=== PATIENT | female | born 1950 | race Caucasian/White ===

== ENCOUNTER 2018-03-11 01:44 | Emergency (ER) | payer MEDICARE, MEDICAID ==
[2018-03-11 07:52] LABS: CHLORIDE,CL 102 mmol/L (98-107); SODIUM,NA 141 mmol/L (136-145)
--- NOTE | 2018-03-12 10:17 | EDM.PDOC ---
ED HPI GENERAL MEDICAL PROBLEM - General Chief Complaint: Neuro Symptoms/Deficits Stated Complaint: fall, pupils less reactive Time Seen by Provider: 03/11/18 01:46 Source of Information: Reports: Patient - History of Present Illness INITIAL COMMENTS - FREE TEXT/NARRATIVE: Patient is a 67-year-old seen in the ER secondary to request of the [facility] nurses patient apparently fell at the [facility] nurses stated that she fell off the wheelchair hitting her head she was doing okay she had multiple neuro exams on her last neuro exam they reported that the pupils were nonreactive O patient was sent to the ER for evaluation patient was alert and oriented 3 state that she fell off the wheelchair hitting her head denied any other symptoms physical exam reveal normocephalic atraumatic no signs of trauma seen eyes were PERRLA pupils were 2 mm and reactive throat was clear neck was supple lungs clear to auscultation no rales rhonchi or wheezing heart was regular rate and rhythm abdomen was soft nontender no masses organomegaly good bowel sounds extremities reveal full range of motion at this time a CT of the head was obtained there was no intracranial bleed or abnormalities at this time patient will be sent home to her [facility] follow-up with primary as needed Onset: Today - Related Data Allergies Allergy/AdvReac Type Severity Reaction Status Date / Time Penicillins Allergy Cannot Verified 01/10/16 16:17 Remember Home Meds: Home Meds ARIPiprazole [Abilify] 30 mg PO DAILY 07/13/15 [History] Acetaminophen [Acetaminophen ER] 650 mg PO BID 07/13/15 [History] Albuterol Sulfate [Proventil Hfa] 2 inh IH BID 07/13/15 [History] Albuterol/Ipratropium [DuoNeb 3.0-0.5 MG/3 ML] 3 ml NEB DAILY@199907/13/15 [ History] Alendronate [Fosamax] 70 mg PO Q7D@0600 07/13/15 [History] Aspirin [Halfprin] 81 mg PO DAILY 07/13/15 [History] Cholecalciferol (Vitamin D3) [Vitamin D3] 2,000 unit PO DAILY 07/13/15 [History] Donepezil HCl [Aricept] 10 mg PO BID 07/13/15 [History] Furosemide [Lasix] 40 mg PO DAILY 07/13/15 [History] Gabapentin [Neurontin] 100 mg PO BID 07/13/15 [History] Insulin Aspart [Novolog] 10 unit SQ TID 07/13/15 [History] L.acidoph,Paracasei, B.lactis [Probiotic] 1 each PO DAILY 07/13/15 [History] Levothyroxine Sodium [Synthroid] 175 mcg PO DAILY 07/13/15 [History] Lisinopril 10 mg PO DAILY 07/13/15 [History] Memantine HCl [Namenda XR] 14 mg PO DAILY 07/13/15 [History] Metoprolol Succinate [Toprol XL] 25 mg PO DAILY 07/13/15 [History] Omeprazole [Prilosec] 20 mg PO DAILY 07/13/15 [History] Sertraline HCl [Zoloft] 1.5 tab PO DAILY 07/13/15 [History] atorvaSTATin [Lipitor] 40 mg PO DAILY 07/13/15 [History] traMADol HCl [Ultram] 50 mg PO TID 07/13/15 [History] Calcitriol 0.5 mcg PO DAILY 01/10/16 [History] Insulin Glarg,Human.Rec.Analog [LantUS Solostar] 20 units SUBCUT DAILY 01/10/16 [History] metOLazone [Metolazone] 2.5 mg PO DAILY 01/10/16 [History] Past Medical History Cardiovascular History: Reports: High Cholesterol, Hypertension, Other (See Below) Other Cardiovascular History: Edema Respiratory History: Reports: COPD Genitourinary History: Reports: Chronic Renal Insuffiency, Renal Disease Psychiatric History: Reports: Schizophrenia Endocrine/Metabolic History: Reports: Diabetes, Type II - Infectious Disease History Infectious Disease History: Reports: Chicken Pox ED ROS GENERAL - Review of Systems Review Of Systems: ROS reveals no pertinent complaints other than HPI. ED EXAM, GENERAL - Physical Exam Exam: See Below Free Text/Narrative:: physical exam reveal normocephalic atraumatic no signs of trauma seen eyes were PERRLA pupils were 2 mm and reactive throat was clear neck was supple lungs clear to auscultation no rales rhonchi or wheezing heart was regular rate and rhythm abdomen was soft nontender no masses organomegaly good bowel sounds extremities reveal full range of motion at this time Course - Orders/Labs/Meds Labs: Laboratory Tests 03/11/18 03/11/18 Range/Units 02:20 02:20 WBC 4.8 (4.0-10.2) K/uL RBC 3.39 L (3.77-5.09) M/uL Hgb 10.3 L (11.7-15.5) g/dL Hct 33.4 L (34.0-46.0) % MCV 98.5 H D (84.0-98.0) fL MCH 30.4 (28.2-33.3) pg MCHC 30.8 L (31.7-36.0) g/dL RDW 15.3 H (11.2-14.1) % Plt Count 190 (150-350) K/uL Neut % (Auto) 51.4 (45.0-80.0) % Lymph % (Auto) 31.3 (10.0-50.0) % [place] % (Auto) 9.9 (2.0-14.0) % Eos % (Auto) 7.0 H (0.0-5.0) % Baso % (Auto) 0.4 (0.0-2.0) % Neut # (Auto) 2.48 (1.40-7.00) K/uL Lymph # (Auto) 1.51 (0.50-3.50) K/uL [place] # (Auto) 0.48 (0.00-1.00) K/uL Eos # (Auto) 0.34 (0.00-0.50) K/uL Baso # (Auto) 0.02 (0.00-0.20) K/uL Sodium 141 (136-145) mmol/L Potassium 3.0 L (3.5-5.1) mmol/L Chloride 102 (98-107) mmol/L Carbon Dioxide 33.0 H D (21.0-32.0) mmol/L BUN 37 H (7-18) mg/dL Creatinine 2.87 H (0.51-1.17) mg/dL Est Cr Clr Drug Dosing TNP Estimated GFR (MDRD) 16 mL/min Glucose 140 H (74-106) mg/dL Calcium 9.5 (8.5-10.1) mg/dL Departure - Departure Time of Disposition: 05:09 Disposition: DC/Tfer to SNF 03 Clinical Impression: Fall Qualifiers: Encounter type: initial encounter Qualified Code(s): W19.XXXA - Unspecified fall, initial encounter - Discharge Information Forms: ED Department Discharge Care Plan Goals: DC back to [facility] ; follow up as needed
== END 2018-03-11 05:09 ==
LOC: LL.ED 01:44
DX: Z04.3 Encounter for examination and observation following other accident (principal); I12.9 Hypertensive chronic kidney disease with stage 1 through stage 4 chronic kidney disease, or unspecified chronic kidney disease; N18.9 Chronic kidney disease, unspecified; J44.9 Chronic obstructive pulmonary disease, unspecified; E11.9 Type 2 diabetes mellitus without complications; W18.30XA Fall on same level, unspecified, initial encounter; Y92.129 Unspecified place in nursing home as the place of occurrence of the external cause; Z88.0 Allergy status to penicillin; Z79.899 Other long term (current) drug therapy; Z79.4 Long term (current) use of insulin
CPT/HCPCS: 36415; 70450; 80048; 85025; 99283; 99285

== ENCOUNTER 2018-04-17 18:14 | Emergency (ER) | payer MEDICARE, MEDICAID ==
[2018-04-17 18:39] VITALS: BP 134/50
--- NOTE | 2018-04-17 20:14 | EDM.PDOC ---
ED HPI GENERAL MEDICAL PROBLEM - General Chief Complaint: General Stated Complaint: congestion Time Seen by Provider: 04/17/18 18:33 Source of Information: Reports: Other (Patient sent from [facility] by ambulance with complaint of congestion with room air sats of 88% written on paperwork. No additional information given. No phone call made to our facility prior to transfer. Confirmed with Alireza that no communication was attempted with her (shelter monitor for shelter issues) prior to facility sending patient to ER. Patient herself says that she feels fine and as without acute complaints when she arrived. She does have some degree of memory impairment which limited ROS. ) - History of Present Illness INITIAL COMMENTS - FREE TEXT/NARRATIVE: See above. No other concerns per paperwork sent with shelter resident. Upon arrival patient was resting comfortably. Did ask to use the bathroom. Denied acute pain/cough/SOB/GI/HEENT/chest complaints. - Related Data Allergies Allergy/AdvReac Type Severity Reaction Status Date / Time Penicillins Allergy Cannot Verified 01/10/16 16:17 Remember Home Meds: Home Meds ARIPiprazole [Abilify] 30 mg PO DAILY 07/13/15 [History] Acetaminophen [Acetaminophen ER] 650 mg PO Q4HR PRN 07/13/15 [History] Albuterol Sulfate [Proventil Hfa] 2 inh IH BID 07/13/15 [History] Aspirin [Halfprin] 81 mg PO DAILY 07/13/15 [History] Cholecalciferol (Vitamin D3) [Vitamin D3] 2,000 unit PO DAILY 07/13/15 [History] Donepezil HCl [Aricept] 10 mg PO 07/13/15 [History] Furosemide [Lasix] 40 mg PO DAILY 07/13/15 [History] L.acidoph,Paracasei, B.lactis [Probiotic] 1 each PO DAILY 07/13/15 [History] Levothyroxine Sodium [Synthroid] 175 mcg PO DAILY@0500 07/13/15 [History] Metoprolol Succinate [Toprol XL] 0.5 tab PO DAILY 07/13/15 [History] atorvaSTATin [Lipitor] 40 mg PO DAILY 07/13/15 [History] traMADol HCl [Ultram] 50 mg PO BEDTIME 07/13/15 [History] Calcitriol 0.5 tab PO DAILY 01/10/16 [History] Allopurinol [Zyloprim] 300 mg PO DAILY 04/17/18 [History] Bisacodyl [Dulcolax] 10 mg RC DAILY PRN 04/17/18 [History] Bumetanide [Bumex] 1 mg PO DAILY 04/17/18 [History] Divalproex Sodium [Depakote Sprinkle] 125 mg PO BIDMEALS 04/17/18 [History] Ferrous Fumarate/Vitamin C [Vitron-C] 2 tab PO DAILY@1000 04/17/18 [History] Gabapentin [Neurontin] 400 mg PO DAILY 04/17/18 [History] Insulin Degludec [Tresiba Flextouch U-200] 4 units SQ BEDTIME 04/17/18 [History] Magnesium Hydroxide [Milk of Magnesia] 30 ml PO DAILY PRN 04/17/18 [History] Nystatin 1 each PO BID PRN 04/17/18 [History] Potassium Chloride [Klor-Con 10] 2 tab PO BID 04/17/18 [History] Trolamine Salicylate/Aloe Vera [Aspercreme 10% Cream] 1 applic TP ASDIRECTED PRN 04/17/18 [History] oxyCODONE HCl/Acetaminophen [Oxycodone-Acetaminophen 5-325] 1 tab PO ASDIRECTED PRN 04/17/18 [History] Past Medical History Cardiovascular History: Reports: Heart Failure, High Cholesterol, Hypertension, Other (See Below) Other Cardiovascular History: Edema Respiratory History: Reports: COPD Genitourinary History: Reports: Chronic Renal Insuffiency, Renal Disease Psychiatric History: Reports: Bipolar (Schizoaffective disorder), Dementia Endocrine/Metabolic History: Reports: Diabetes, Type II, Hypothyroidism, Obesity /BMI 30+ Hematologic History: Reports: Anemia, Other (See Below) (hypocalcemia, hyperuricemia, hypokalemia) - Infectious Disease History Infectious Disease History: Reports: Chicken Pox Social & Family History - Tobacco Use Smoking Status *Q: Former Smoker Used Tobacco, but Quit: Yes Month/Year Tobacco Last Used: 4 years - Recreational Drug Use Recreational Drug Use: No ED ROS GENERAL - Review of Systems Review Of Systems: Unable To Obtain ED EXAM, GENERAL - Physical Exam Exam: See Below Exam Limited By: No Limitations General Appearance: Alert, No Apparent Distress, Obese Eye Exam: Bilateral Eye: EOMI, PERRL Ears: Normal External Exam Nose: No: Nasal Deformity, Nasal Swelling, Nasal Drainage Throat/Mouth: Normal Voice, No Airway Compromise Head: Atraumatic, Normocephalic Neck: Normal Inspection, Supple, Non-Tender, Full Range of Motion Respiratory/Chest: No Respiratory Distress, No Accessory Muscle Use, Chest Non- Tender, Decreased Breath Sounds (Poor inspiratory effort/morbidly obese), Rhonchi (several scattered rhonchi note right lung. Cleared when patient coughed. ). No: Crackles, Rales, Wheezing, Stridor Cardiovascular: Regular Rate, Rhythm, Other (AV fistula noted left arm) Peripheral Pulses: 2+: Radial (L), Radial (R) GI/Abdominal: Normal Bowel Sounds, Soft, Non-Tender, Other (obese) (Female) Exam: Normal External Exam Rectal (Female) Exam: Deferred Back Exam: No: Muscle Spasm Extremities: Normal Capillary Refill, Pedal Edema. No: Leg Pain, Increased Warmth, Mottled, Pallor, Redness Neurological: Alert, Other (awake, follows commands, appears to have equal tone/ strength bilaterally. Very deconditioned. ) Psychiatric: Normal Affect, Normal Mood Skin Exam: Warm, Dry, Normal Color Course - Vital Signs Last Recorded V/S: Last Vital Signs Temp 36.7 C 04/17/18 18:31 Pulse 63 04/17/18 18:31 Resp 20 04/17/18 18:31 BP 134/50 L 04/17/18 18:31 Pulse Ox 96 04/17/18 18:31 - Orders/Labs/Meds Orders: Active Orders 24 hr Category Date Time Status Chest 1V Frontal [CR] Stat Exams 04/17/18 18:28 Ordered Labs: Laboratory Tests 04/17/18 04/17/18 04/17/18 Range/Units 19:00 19:00 19:00 WBC 7.7 (4.0-10.2) K/uL RBC 3.55 L (3.77-5.09) M/uL Hgb 10.9 L (11.7-15.5) g/dL Hct 35.8 (34.0-46.0) % MCV 100.8 H (84.0-98.0) fL MCH 30.7 (28.2-33.3) pg MCHC 30.4 L (31.7-36.0) g/dL RDW 17.0 H (11.2-14.1) % Plt Count 142 L (150-350) K/uL Neut % (Auto) 66.9 (45.0-80.0) % Lymph % (Auto) 22.3 (10.0-50.0) % [place] % (Auto) 7.1 (2.0-14.0) % Eos % (Auto) 3.4 (0.0-5.0) % Baso % (Auto) 0.3 (0.0-2.0) % Neut # (Auto) 5.17 (1.40-7.00) K/uL Lymph # (Auto) 1.72 (0.50-3.50) K/uL [place] # (Auto) 0.55 (0.00-1.00) K/uL Eos # (Auto) 0.26 (0.00-0.50) K/uL Baso # (Auto) 0.02 (0.00-0.20) K/uL Sodium 148 H (136-145) mmol/L Potassium 5.1 D (3.5-5.1) mmol/L Chloride 108 H (98-107) mmol/L Carbon Dioxide 29.6 (21.0-32.0) mmol/L BUN 33 H (7-18) mg/dL Creatinine 2.72 H (0.51-1.17) mg/dL Est Cr Clr Drug Dosing 16.60 mL/min Estimated GFR (MDRD) 17 mL/min Glucose 140 H (74-106) mg/dL Lactic Acid 2.2 H (0.4-2.0) mmol/L Calcium 10.7 H (8.5-10.1) mg/dL Total Bilirubin 0.3 (0.2-1.0) mg/dL AST 13 L (15-37) U/L ALT 10 L (12-78) U/L Alkaline Phosphatase 71 (46-116) IU/L Total Protein 7.8 (6.4-8.2) g/dL Albumin 3.0 L (3.4-5.0) g/dL - Radiology Interpretation Free Text/Narrative:: Chest xray did not appear to show acute changes suggestive of pneumonia/ pneumthorax/effusions. - Re-Assessments/Exams Free Text/Narrative Re-Assessment/Exam: 04/17/18 20:30 Unremarkable exam. O2 sats on room air 95-96% while patient sleeping. Sparse rhonchi noted on chest exam which improved with cough. Appeared to be more consistent with transmitted upper airway sounds. No nasal congestion noted. WBC within normal limits. Afbrile. Xray did not show infiltrate. Lactic acid mildly elevated but suspect that is reflective of patient's chronic kidney disease. Na and Cl noted to be slightly elevated, again likely related to chronic kidney disease. Call placed to Alireza, shelter monitor [facility] Acute medication changes and antibiotics not indicated at this time. Patient's presentation, exam, and lab work discussed. Plan at this time is to have patient return to [place] and follow up at [facility] tomorrow or Saturday for recheck. She will be placed on low sodium diet and be encouraged to drink more water. Staff is to continue to observe for changes. Departure - Departure Time of Disposition: 20:36 Disposition: DC/Tfer to SNF 03 Condition: Good Clinical Impression: Hypernatremia Chronic kidney disease Qualifiers: Chronic kidney disease stage: unspecified stage Qualified Code(s): N18.9 - Chronic kidney disease, unspecified - Discharge Information *PRESCRIPTION DRUG MONITORING PROGRAM REVIEWED*: Not Applicable *COPY OF PRESCRIPTION DRUG MONITORING REPORT IN PATIENT DEISI: Not Applicable Referrals: Pauline Upton MD [Primary Care Provider] - Forms: ED Department Discharge Additional Instructions: Follow up with Alireza at [facility] either tomorrow or Saturday at clinic for re- examination. Encourage PO water. Place on low salt diet. Continue to observe for changes. - My Orders Last 24 Hours: My Active Orders 04/17/18 18:28 Chest 1V Frontal [CR] Stat - Assessment/Plan Last 24 Hours: My Active Orders 04/17/18 18:28 Chest 1V Frontal [CR] Stat
== END 2018-04-17 21:30 ==
LOC: LL.ED 18:14
DX: E87.0 Hyperosmolality and hypernatremia (principal); I13.0 Hypertensive heart and chronic kidney disease with heart failure and stage 1 through stage 4 chronic kidney disease, or unspecified chronic kidney disease; E11.22 Type 2 diabetes mellitus with diabetic chronic kidney disease; I50.9 Heart failure, unspecified; N18.9 Chronic kidney disease, unspecified; E78.00 Pure hypercholesterolemia, unspecified; E03.9 Hypothyroidism, unspecified; E66.01 Morbid (severe) obesity due to excess calories; Z68.39 Body mass index [BMI] 39.0-39.9, adult; Z87.891 Personal history of nicotine dependence; Z79.82 Long term (current) use of aspirin; Z79.4 Long term (current) use of insulin; Z79.899 Other long term (current) drug therapy; Z88.0 Allergy status to penicillin
CPT/HCPCS: 36415; 71045; 80053; 83605; 85025; 99285

== ENCOUNTER 2018-11-21 05:55 | Emergency (ER) | payer MEDICARE, MEDICAID ==
[2018-11-21] MEDS ORDERED: Sodium Chloride 0.9% 10 ML Syringe FLUSH PRN (06:19)
[2018-11-21] MEDS ORDERED: Famotidine 20 MG/2 ML SDV IVPUSH ONE (06:19)
--- NOTE | 2018-11-21 06:19 | EDM.PDOC ---
ED HPI GENERAL MEDICAL PROBLEM - General Chief Complaint: General Stated Complaint: decreased alertness, fever Time Seen by Provider: 11/21/18 06:10 Source of Information: Reports: EMS, [facility] Records, Old Records ([facility] chart/EMR), Other ([facility] EMR). Denies: EMS Notes Reviewed (Not available at time of dictation) History Limitations: Reports: Altered Mental Status - History of Present Illness INITIAL COMMENTS - FREE TEXT/NARRATIVE: The patient was brought to the emergency room via ambulance with burring machine operator accompaniment secondary to hypoxia and increasing confusion/sedation with patient being an extremely poor historian secondary to her current sedation and previous mental status. No report was provided to us by the [facility] prior to transfer of this patient to this facility. At about 05:00 hours this morning the patient was noted to be more sedated by [facility]ci staff with hypoxia at that time. Stat Accu-Chek by the burring machine operator was normal at 150 mg percent. No known previous chest pain, anginal type symptoms, abdominal complaints, UTI symptoms, fever, cough, aspiration, seizures, fall, injury, etc., however history extremely limited as above. No apparent pain or discomfort. Onset: Unknown/Unsure Location: Reports: Other (No pain) Quality: Reports: Same as Previous Episode Severity: Severe Improves with: Reports: None Worsens with: Reports: None Context: Reports: Other (As above). Denies: Sick Contact, Trauma Associated Symptoms: Reports: Confusion, Malaise. Denies: Chest Pain, Cough, Diaphoresis, Fever/Chills, Headaches, Loss of Appetite, Nausea/Vomiting, Shortness of Breath, Syncope Treatments ASSISTANT PRESS OPERATOR OFFSET: Reports: Oxygen, See EMS Report - Related Data Allergies Allergy/AdvReac Type Severity Reaction Status Date / Time Penicillins Allergy Cannot Verified 07/31/18 14:24 Remember Home Meds: Home Meds ARIPiprazole [Abilify] 15 mg PO DAILY 07/13/15 [History] Acetaminophen [Acetaminophen ER] 650 mg PO Q4HR PRN 07/13/15 [History] Aspirin [Halfprin] 81 mg PO DAILY 07/13/15 [History] Donepezil HCl [Aricept] 10 mg PO 08,18 07/13/15 [History] Metoprolol Succinate [Toprol XL] 0.5 tab PO DAILY 07/13/15 [History] atorvaSTATin [Lipitor] 40 mg PO DAILY 07/13/15 [History] traMADol HCl [Ultram] 50 mg PO BEDTIME 07/13/15 [History] Allopurinol [Zyloprim] 300 mg PO DAILY 04/17/18 [History] Bumetanide [Bumex] 1 mg PO DAILY 04/17/18 [History] Divalproex Sodium [Depakote Sprinkle] 125 mg PO BIDMEALS 04/17/18 [History] Ferrous Fumarate/Vitamin C [Vitron-C] 2 tab PO DAILY@1000 04/17/18 [History] Gabapentin [Neurontin] 400 mg PO DAILY 04/17/18 [History] Magnesium Hydroxide [Milk of Magnesia] 30 ml PO DAILY PRN 04/17/18 [History] Nystatin 1 each TOP BID PRN 04/17/18 [History] Potassium Chloride [Klor-Con 10] 2 tab PO BID 04/17/18 [History] Levothyroxine 125 mcg PO ACBREAKFAST 11/21/18 [History] Past Medical History Cardiovascular History: Reports: CAD, Cardiomyopathy, Heart Failure, High Cholesterol, Hypertension, Other (See Below). Denies: Afib, Aneurysm, Arrhythmia, Blood Clots/VTE/DVT, ID, Syncope Other Cardiovascular History: Chronic dependent edema and recurrent CHF with moderate cardiomegaly, left atrial enlargement, left ventricular hypertrophy and grade 1 diastolic dysfunction by echocardiogram as below. D-dimer elevation chronic with negative workup. Respiratory History: Reports: Bronchitis, Recurrent, COPD, Intubation, Previous , Pneumonia, Recurrent, Pulmonary Fibrosis, Other (See Below). Denies: Intubation, Difficult, PE, Sleep Apnea Other Respiratory History: Bilateral pulmonary nodules by CT scans as below. Gastrointestinal History: Reports: Cholelithiasis, Diverticulosis, GERD, Other ( See Below) Other Gastrointestinal History: Gallbladder sludge Genitourinary History: Reports: Acute Renal Failure, Chronic Renal Insuffiency, Dialysis, Diabetic Nephropathy, Renal Disease, Urinary Incontinence, UTI, Recurrent, Other (See Below) Other Genitourinary History: Grade 4 renal insufficiency QUALITY TESTER History: Reports: LMP (Approximate): Menopausal Musculoskeletal History: Reports: Arthritis, Back Pain, Chronic, Gout, Neck Pain , Chronic, Osteoarthritis, Osteoporosis, Other (See Below) Other Musculoskeletal History: Hyperuricemia Neurological History: Reports: Alzheimers Disease, CVA, Neuropathy, Diabetic, Neuropathy, Peripheral, Other (See Below). Denies: TIA Other Neuro History: Cerebral atrophy and cerebovascular disease by CT scan. Chronic AMS. Suspected CVA with left-sided hemiparesis on 07/31/18 with negative workup as below. Psychiatric History: Reports: Alzheimers Disease, Anxiety, Bipolar ( Schizoaffective disorder), Dementia, Schizophrenia, Other (See Below) Other Psychiatric History: History of lithium toxicity. Endocrine/Metabolic History: Reports: Diabetes, Type II, Hyperparathyroidism, Hypothyroidism, IDDM, Multinodular Thyroid, Obesity/BMI 30+, Osteopenia, Osteoporosis, Other (See Below). Denies: Diabetes Mellitus, Type 3c Other Endocrine/Metabolic History: Large thyroid gland by ultrasound and CT scans with multiple nodules noted. Postoperative hypothyroidism. Secondary parathyroidism.. Hypercalcemia/hypocalcemia,hypokalemia, hypernatremia Hematologic History: Reports: Anemia, Iron Deficiency, Other (See Below). Denies: Blood Transfusion(s) Other Hematologic History: Additional chronic anemia secondary to renal disease. Dermatologic History: Reports: Venous Stasis Dermatitis, Other (See Below) Other Dermatologic History: Recurrent tinea - Infectious Disease History Infectious Disease History: Reports: Chicken Pox, MRSA - Past Surgical History Cardiovascular Surgical History: Reports: Vascular Surgery, Other (See Below) Other Cardiovascular Surgeries/Procedures: Left arm AV shunt fistula placement on 10/08/17 in 05/23/18. Female Surgical History: Reports: Hysterectomy, Tubal Ligation Endocrine Surgical History: Reports: Thyroidectomy, Other (See Below) Other Endocrine Surgeries/Procedures: Thyroidectomy secondary to goiter as above on 09/02/14. - Past Imaging History Past Imaging History: Reports: Cardiac Echo (Echocardiogram on 03/12/17 with ejection fraction of 70%. Previous evaluation on 01/03/16 with ejection fraction of 5055 percent with findings as above.), CAT Scan (CT of the head on 07/31/18 and 03/11/18. CT of the CT of the right tibial fibular area on 05/24/17. CT of the chest on 12/10/14 and 06/11/14. CT of the soft tissue of the neck on . CT of the abdomen and pelvis on 11/15/16.), DEXA Scan (04/11/15), Mammogram ( Last on 06/11/14), MRI ( MRI of the brain on 07/31/18.), Swallow Study (Negative on 08/01/18.), Ultrasound (Bilateral renal ultrasound on 11/14/16 and 07/15/15 Thyroid ultrasound on 06/02/14), Venous Doppler (Bilateral lower extremities on , 03/28/15, and 05/23/14. Left leg on 03/28/15. Right leg on 05/25/14) Social & Family History - Family History Family Medical History: Unobtainable - Tobacco Use Smoking Status *Q: Former Smoker Tobacco Use Within Last Twelve Months: No Packs/Tins Daily Comment: Stop smoking on . - Living Situation & Occupation Living situation: Reports: Extended Care Facility ([facility]) ED ROS GENERAL - Review of Systems Review Of Systems: Unable To Obtain ED EXAM, GENERAL - Physical Exam Exam: See Below Exam Limited By: Altered Mental Status General Appearance: No Apparent Distress, Lethargic Eye Exam: Bilateral Eye: EOMI (Unable to assess brief occasional right upper gaze), Normal Fundi, PERRL Ears: Normal External Exam, Normal Canal, Hearing Grossly Normal, Normal TMs Nose: Normal Inspection, Normal Mucosa, No Blood Throat/Mouth: Normal Lips, Normal Teeth, Normal Gums, Normal Oropharynx, Normal Voice, No Airway Compromise, Other (Protruding tongue with right deviation). No : Dysphagia, Perioral Cyanosis Head: Atraumatic, Normocephalic. No: Facial Swelling, Facial Tenderness, Sinus Tenderness Neck: Supple, Non-Tender, Carotid Bruit (Mild bilateral carotid bruits). No: Lymphadenopathy (L), Lymphadenopathy (R), Thyromegaly Respiratory/Chest: No Respiratory Distress, Chest Non-Tender, Rales (Moderate diffuse bilateral basilar rales). No: Pleural Rub, Retractions Cardiovascular: Normal Peripheral Pulses, No Gallop, No JVD, No Rub, Tachycardia , Systolic Murmur (Mild 1/6 CUONG of the aortic valve), Extra Beats (PVCs). No: Regular Rate, Rhythm, No Edema (Dependent edema as below), Gallop/S3, Gallop/S4 Peripheral Pulses: 2+: Radial (L), Radial (R), Dorsalis Pedis (L), Dorsalis Pedis (R) GI/Abdominal: Normal Bowel Sounds, Soft, Non-Tender, No Organomegaly, No Distention, No Abnormal Bruit, No Mass, Pelvis Stable, Other (Obese). No: Guarding (Female) Exam: Deferred Rectal (Female) Exam: Deferred Back Exam: Normal Inspection, Full Range of Motion. No: CVA Tenderness (L), CVA Tenderness (R), Muscle Spasm Extremities: Normal Range of Motion, Non-Tender, Normal Capillary Refill, Pedal Edema (Trace bilateral pedal/pretibial edema), Other (0.5 cm grade 12 ulcer over the tip of digit #1 of the left foot with no local signs of infection. Left forearm AV shunt with bruit noted). No: Deanne's Sign Neurological: Slow to Respond (Responded to painful stimuli only), Other ( Negative Babinski's with patient unable to perform neurological exam. Right- sided facial drooping with right-sided hemiparesis/leaning) Psychiatric: Other (Unable to assess) Skin Exam: Wound/Incision (As above), Other (Moderate bilateral venous stasis dermatitis of the lower extremities). No: Diaphoretic Lymphatic: No Adenopathy EKG INTERPRETATION EKG Date: 11/21/18 Time: 06:53 Rhythm: Other (Sinus tachycardia with occasional PVCs) Rate (Beats/Min): 104 [place]: Normal (Neutral axis) P-Wave: Present QRS: Normal (0.08 seconds.) ST-T: Other (Stable nonspecific ST changes in leads 2, 3, aVF and V4 through V6) AR/PQ Interval: 0.19 seconds. Poor R-wave progression in the anterior leads. Comparison: No Change (Since 07/31/18) EKG Interpretation Comments: 1. No acute ischemic changes 2. PVCs Course - Vital Signs Last Recorded V/S: Last Vital Signs Temp 37.7 C 11/21/18 05:55 Pulse 84 11/21/18 08:00 Resp 17 11/21/18 08:00 BP 139/75 11/21/18 08:00 Pulse Ox 95 11/21/18 08:00 Vital Signs - 24 hr 11/21/18 11/21/18 11/21/18 05:55 06:10 06:25 Temperature [ 37.7 C Temporal] Pulse, 101 H 99 102 H Peripheral [ Right Pulse Oximetry] Respiratory 17 17 16 Rate Blood Pressure 106/64 121/68 108/69 [Right Upper Arm] O2 Sat by Pulse 87 L 92 L 93 L Oximetry 11/21/18 11/21/18 11/21/18 07:00 07:15 07:30 Temperature [ Temporal] Pulse, 102 H 95 97 Peripheral [ Right Pulse Oximetry] Respiratory 19 17 18 Rate Blood Pressure 128/70 127/79 130/112 H [Right Upper Arm] O2 Sat by Pulse 91 L 95 94 L Oximetry 11/21/18 11/21/18 07:45 08:00 Temperature [ Temporal] Pulse, 86 84 Peripheral [ Right Pulse Oximetry] Respiratory 18 17 Rate Blood Pressure 135/83 139/75 [Right Upper Arm] O2 Sat by Pulse 94 L 95 Oximetry - Orders/Labs/Meds Orders: Active Orders 24 hr Category Date Time Status Cardiac Monitoring [RC] STAT Care 11/21/18 06:19 Active EKG Documentation Completion [RC] ASDIRECTED Care 11/21/18 06:19 Active NIH Stroke Scale [RC] ASDIRECTED Care 11/21/18 06:19 Active Oxygen Therapy, ED [RC] CONTINUOUS Care 11/21/18 06:19 Active Peripheral IV Care [RC] . DIRECTED Care 11/21/18 06:19 Active Pulse Oximetry [RC] CONTINUOUS Care 11/21/18 06:19 Active Up With Assistance [RC] ASDIRECTED Care 11/21/18 06:19 Active Vital Signs [RC] PFP Care 11/21/18 06:19 Active Nothing per Oral Now Diet [DIET] Diet 11/21/18 Breakfast Active Chest 1V Frontal [CR] Stat Exams 11/21/18 06:19 Taken Head wo Cont [CT] Stat Exams 11/21/18 06:19 Taken CULTURE BLOOD [BC] Stat Lab 11/21/18 06:30 Received CULTURE BLOOD [BC] Stat Lab 11/21/18 07:00 Received CULTURE URINE [RM] Routine Lab 11/21/18 06:21 Ordered PROLACTIN [REF] Stat Lab 11/21/18 07:00 Received URINALYSIS W/MICROSCOPIC [UA W/MICROSCOPIC] [URIN] Lab 11/21/18 06:21 Ordered Routine Sodium Chloride 0.9% [Saline Flush] Med 11/21/18 06:19 Active 10 ml FLUSH ASDIRECTED PRN Blood Culture x2 Reflex Set [OM.PC] Urgent Oth 11/21/18 06:21 Ordered Obtain Past Medical Record [OM.PC] Stat Oth 11/21/18 06:19 Active Peripheral IV Insertion Adult [OM.PC] Stat Oth 11/21/18 06:19 Ordered Resuscitation Status Stat Resus Stat 11/21/18 06:19 Ordered EKG 12 Lead [EK] Stat Ther 11/21/18 06:19 Ordered Medication Orders Sodium Chloride (Saline Flush) 10 ml FLUSH ASDIRECTED PRN PRN Reason: Keep Vein Open Last Admin: 11/21/18 07:30 Dose: 10 ml Labs: Laboratory Tests 11/21/18 11/21/18 11/21/18 Range/Units 06:30 06:30 06:30 WBC 5.9 (4.0-10.2) K/uL RBC 3.40 L (3.77-5.09) M/uL Hgb 11.2 L D (11.7-15.5) g/dL Hct 35.5 (34.0-46.0) % MCV 104.4 H (84.0-98.0) fL MCH 32.9 (28.2-33.3) pg MCHC 31.5 L (31.7-36.0) g/dL RDW 16.2 H (11.2-14.1) % Plt Count 124 L (150-350) K/uL Neut % (Auto) 69.4 (45.0-80.0) % Lymph % (Auto) 17.7 (10.0-50.0) % [place] % (Auto) 12.3 (2.0-14.0) % Eos % (Auto) 0.3 (0.0-5.0) % Baso % (Auto) 0.3 (0.0-2.0) % Neut # (Auto) 4.12 (1.40-7.00) K/uL Lymph # (Auto) 1.05 (0.50-3.50) K/uL [place] # (Auto) 0.73 (0.00-1.00) K/uL Eos # (Auto) 0.02 (0.00-0.50) K/uL Baso # (Auto) 0.02 (0.00-0.20) K/uL PT 10.1 (9.5-12.0) SEC INR 0.9 APTT 26.9 (21.0-31.3) SEC D-Dimer, Quantitative 1730 H (0-400) ng/mL Sodium (136-145) mmol/L Potassium (3.5-5.1) mmol/L Chloride (98-107) mmol/L Carbon Dioxide (21.0-32.0) mmol/L BUN (7-18) mg/dL Creatinine (0.51-1.17) mg/dL Est Cr Clr Drug Dosing Estimated GFR (MDRD) mL/min Glucose (74-106) mg/dL Lactic Acid (0.4-2.0) mmol/L Uric Acid (2.6-7.2) mg/dL Calcium (8.5-10.1) mg/dL Magnesium (1.8-2.4) mg/dL Total Bilirubin (0.2-1.0) mg/dL AST (15-37) U/L ALT (12-78) U/L Alkaline Phosphatase (46-116) IU/L Creatine Kinase (26-308) U/L Creatine Kinase Index (0.0-2.5) % CK-MB (CK-2) (0.00-3.60) ng/mL Troponin I (0.000-0.056) ng/mL NT-Pro-B Natriuret Pep (0-125) pg/mL Total Protein (6.4-8.2) g/dL Albumin (3.4-5.0) g/dL TSH, Ultra Sensitive (0.358-3.740) mIU/mL 11/21/18 11/21/18 Range/Units 06:30 06:30 WBC (4.0-10.2) K/uL RBC (3.77-5.09) M/uL Hgb (11.7-15.5) g/dL Hct (34.0-46.0) % MCV (84.0-98.0) fL MCH (28.2-33.3) pg MCHC (31.7-36.0) g/dL RDW (11.2-14.1) % Plt Count (150-350) K/uL Neut % (Auto) (45.0-80.0) % Lymph % (Auto) (10.0-50.0) % [place] % (Auto) (2.0-14.0) % Eos % (Auto) (0.0-5.0) % Baso % (Auto) (0.0-2.0) % Neut # (Auto) (1.40-7.00) K/uL Lymph # (Auto) (0.50-3.50) K/uL [place] # (Auto) (0.00-1.00) K/uL Eos # (Auto) (0.00-0.50) K/uL Baso # (Auto) (0.00-0.20) K/uL PT (9.5-12.0) SEC INR APTT (21.0-31.3) SEC D-Dimer, Quantitative (0-400) ng/mL Sodium 148 H (136-145) mmol/L Potassium 4.1 (3.5-5.1) mmol/L Chloride 111 H (98-107) mmol/L Carbon Dioxide 28.8 (21.0-32.0) mmol/L BUN 42 H (7-18) mg/dL Creatinine 2.52 H (0.51-1.17) mg/dL Est Cr Clr Drug Dosing TNP Estimated GFR (MDRD) 19 mL/min Glucose 132 H (74-106) mg/dL Lactic Acid 1.0 (0.4-2.0) mmol/L Uric Acid 5.2 (2.6-7.2) mg/dL Calcium 9.6 D (8.5-10.1) mg/dL Magnesium 2.3 (1.8-2.4) mg/dL Total Bilirubin 0.3 (0.2-1.0) mg/dL AST 19 (15-37) U/L ALT 17 (12-78) U/L Alkaline Phosphatase 56 (46-116) IU/L Creatine Kinase 207 (26-308) U/L Creatine Kinase Index 0.5 (0.0-2.5) % CK-MB (CK-2) 1.10 (0.00-3.60) ng/mL Troponin I 0.043 (0.000-0.056) ng/mL NT-Pro-B Natriuret Pep 861 H (0-125) pg/mL Total Protein 7.4 (6.4-8.2) g/dL Albumin 3.0 L (3.4-5.0) g/dL TSH, Ultra Sensitive 0.481 (0.358-3.740) mIU/mL Secondary to CVA and need for transfer catheter UA was not collected prior to patient leaving this facility Meds: Medications Generic Name Dose Route Start Last Admin Trade Name Freq PRN Reason Stop Dose Admin Sodium Chloride 10 ml 11/21/18 06:19 11/21/18 07:30 Saline Flush FLUSH 10 ml ASDIRECTED PRN Administration Keep Vein Open Discontinued Medications Generic Name Dose Route Start Last Admin Trade Name Freq PRN Reason Stop Dose Admin Aspirin 300 mg 11/21/18 08:12 11/21/18 08:15 Aspirin RECTAL 11/21/18 08:13 300 mg ONETIME ONE Administration Famotidine 40 mg 11/21/18 06:19 11/21/18 07:30 Pepcid IVPUSH 11/21/18 06:20 40 mg ONETIME ONE Administration - Radiology Interpretation Free Text/Narrative:: bacteriology technician shows mild sinus tachycardia with heart rate in the 110s with improvement to the 90s prior to transfer. Very occasional PVCs noted. Chest x-ray, portable, shows borderline cardiomegaly with mild mostly centralized CHF and additional mild COPD. No pulmonary infiltrates, pneumothorax , etc. Telephone consultation at 07:10 hours with the radiology department at [facility]. Preliminary verbal report of noncontrast CT scan of the head negative for acute CVA or hemorrhages with stable bilateral cerebral atrophy and cerebromicrovascular disease CT Results Date: 11/21/18 CT Results Time: 07:10 Departure - Departure Time of Disposition: 08:30 Disposition: DC/Tfer to Acute Hospital 02 Condition: Serious Clinical Impression: Hypothyroidism (acquired), Parkinsons disease, Organic brain syndrome, PVCs ( premature ventricular contractions), Schizophrenia, Hypoalbuminemia Chronic kidney disease Qualifiers: Chronic kidney disease stage: stage 5, not on chronic dialysis Qualified Code(s ): N18.5 - Chronic kidney disease, stage 5 CVA (cerebral vascular accident) Qualifiers: CVA mechanism: unspecified Qualified Code(s): I63.9 - Cerebral infarction, unspecified Anemia Qualifiers: Anemia type: unspecified type Qualified Code(s): D64.9 - Anemia, unspecified Diabetes mellitus Qualifiers: Diabetes mellitus type: type 2 Diabetes mellitus termination clerk insulin use: with termination clerk use Diabetes mellitus complication status: with kidney complications Diabetes mellitus complication detail: with chronic kidney disease Chronic kidney disease stage: stage 5, not on chronic dialysis Qualified Code(s): E11.22 - Type 2 diabetes mellitus with diabetic chronic kidney disease - Discharge Information *PRESCRIPTION DRUG MONITORING PROGRAM REVIEWED*: Not Applicable *COPY OF PRESCRIPTION DRUG MONITORING REPORT IN PATIENT DEISI: Not Applicable Referrals: Rachana Duong NP [Primary Care Provider] - Forms: ED Department Discharge, Interfacility Transfer EMTALA - Problem List & Annotations (1) CVA (cerebral vascular accident) SNOMED Code(s): 220483755 Code(s): I63.9 - CEREBRAL INFARCTION, UNSPECIFIED Status: Acute Priority : High Current Visit: Yes Onset Date: Unknown Annotation/Comment:: Modified Stroke code called by this physician upon patient's arrival to this facility secondary to patient's clinical findings and long duration of last known well time. Note negative CT scan of the head results as above. Telephone consultation with the patient's son, Christiano, at 07:15 a.m. confirming FULL CODE STATUS and wish to transfer of the patient to [place]. Subsequent telephone consultation with Dr. Mcmahon, neurologist at [facility] at 07:20 hours informing them of the stroke code. He was in agreement with treatment with rectal ASA and does accept the patient for further immediate MRI of the brain through their emergency room. He does agree to contact the emergency room physicians for me. Subsequent transfer with burring machine operator accompaniment with stable vital signs and patient condition prior to transfer. No intubation required with adequate oxygenation with nasal cannula and patient closely observed throughout emergency room care. Note previous similar type symptoms on 07/31/18, however left-sided hemiparesis at that time and negative subsequent workup as above. Qualifiers: CVA mechanism: unspecified Qualified Code(s): I63.9 - Cerebral infarction, unspecified (2) CHF (congestive heart failure) SNOMED Code(s): 94554091 Code(s): I50.9 - HEART FAILURE, UNSPECIFIED Status: Acute Priority: High Current Visit: Yes Onset Date: 07/31/18 Annotation/Comment:: Moderate BNP elevation with secondary mild change of troponin I, which is normal. EKG shows nonspecific ST changes with otherwise normal cardiac enzymes with no apparent recent anginal complaints. Chest pain protocol was not initiated in the emergency room. Known cardiac disease as above. Note d-dimer elevation as below. Mild CHF based on today's chest x-ray with some hypoxia requiring oxygen supplementation as above. Qualifiers: Heart failure type: combined systolic and diastolic Heart failure chronicity: acute on chronic Qualified Code(s): I50.43 - Acute on chronic combined systolic (congestive) and diastolic (congestive) heart failure (3) D-dimer, elevated SNOMED Code(s): 634243203 Code(s): R79.89 - OTHER SPECIFIED ABNORMAL FINDINGS OF BLOOD CHEMISTRY Status: Acute Priority: High Current Visit: Yes Onset Date: 07/31/18 Annotation/Comment:: Note history of previous chronic d-dimer elevation. Persistent D-dimer elevation possibly secondary to her acute CVA. Note renal insufficiency/failure. Further workup accepting providers depending on her clinical course. (4) PVCs (premature ventricular contractions) SNOMED Code(s): 50716396 Code(s): I49.3 - VENTRICULAR PREMATURE DEPOLARIZATION Status: Acute Priority: Medium Current Visit: Yes Onset Date: 11/21/18 Annotation/ Comment:: Nonsymptomatic. Newly diagnosed. Observe for now. (5) Chronic kidney disease SNOMED Code(s): 991030890 Code(s): N18.9 - CHRONIC KIDNEY DISEASE, UNSPECIFIED Status: Acute Priority: High Current Visit: Yes Annotation/Comment:: Stable renal insufficiency based on our records. Note history of dialysis. Qualifiers: Chronic kidney disease stage: stage 5, not on chronic dialysis Qualified Code(s): N18.5 - Chronic kidney disease, stage 5 (6) Anemia SNOMED Code(s): 515909661 Code(s): D64.9 - ANEMIA, UNSPECIFIED Status: Chronic Priority: Medium Current Visit: Yes Annotation/Comment:: Stable by history. Note iron deficiency and chronic renal disease. Macrocytosis today, however, with further workup by accepting providers depending on her clinical course. Qualifiers: Anemia type: unspecified type Qualified Code(s): D64.9 - Anemia, unspecified (7) Organic brain syndrome SNOMED Code(s): 863460146 Code(s): F09 - UNSP MENTAL DISORDER DUE TO KNOWN PHYSIOLOGICAL CONDITION Status: Chronic Priority: High Current Visit: Yes Annotation/Comment:: Increased lethargy secondary to CVA. (8) Diabetes mellitus SNOMED Code(s): 36850216 Code(s): E11.9 - TYPE 2 DIABETES MELLITUS WITHOUT COMPLICATIONS Status: Chronic Priority: Medium Current Visit: Yes Annotation/Comment:: Stable by history. Note diabetic nephropathy. Accu-Chek results as above by paramedics prior to arrival. Qualifiers: Diabetes mellitus type: type 2 Diabetes mellitus termination clerk insulin use: with termination clerk use Diabetes mellitus complication status: with kidney complications Diabetes mellitus complication detail: with chronic kidney disease Chronic kidney disease stage: stage 5, not on chronic dialysis Qualified Code(s): E11.22 - Type 2 diabetes mellitus with diabetic chronic kidney disease; N18.5 - Chronic kidney disease, stage 5; Z79.4 - assisted ( current) use of insulin (9) Hypothyroidism (acquired) SNOMED Code(s): 017025021 Code(s): E03.9 - HYPOTHYROIDISM, UNSPECIFIED Status: Chronic Priority: Medium Current Visit: Yes Annotation/Comment:: Under therapy with normal TSH today. (10) Schizophrenia SNOMED Code(s): 45145427 Code(s): F20.9 - SCHIZOPHRENIA, UNSPECIFIED Status: Chronic Priority: Medium Current Visit: Yes Annotation/Comment:: Stable by history? Qualifiers: Schizophrenia type: unspecified Qualified Code(s): F20.9 - Schizophrenia, unspecified (11) Hypoalbuminemia SNOMED Code(s): 717766722 Code(s): E88.09 - OTH DISORDERS OF PLASMA-PROTEIN METABOLISM, NEC Status: Acute Priority: Medium Current Visit: Yes Onset Date: 11/21/18 Annotation/Comment:: Observe for now. - Problem List Review Problem List Initiated/Reviewed/Updated: Yes - My Orders Last 24 Hours: My Active Orders 11/21/18 06:19 Cardiac Monitoring [RC] STAT EKG Documentation Completion [RC] ASDIRECTED NIH Stroke Scale [RC] ASDIRECTED Oxygen Therapy, ED [RC] CONTINUOUS Peripheral IV Care [RC] . DIRECTED Pulse Oximetry [RC] CONTINUOUS Up With Assistance [RC] ASDIRECTED Vital Signs [RC] PFP Chest 1V Frontal [CR] Stat Head wo Cont [CT] Stat Sodium Chloride 0.9% [Saline Flush] 10 ml FLUSH ASDIRECTED PRN Obtain Past Medical Record [OM.PC] Stat Peripheral IV Insertion Adult [OM.PC] Stat Resuscitation Status Stat EKG 12 Lead [EK] Stat 11/21/18 06:21 CULTURE URINE [RM] Routine URINALYSIS W/MICROSCOPIC [UA W/MICROSCOPIC] [URIN] Routine Blood Culture x2 Reflex Set [OM.PC] Urgent 11/21/18 06:30 CULTURE BLOOD [BC] Stat 11/21/18 07:00 CULTURE BLOOD [BC] Stat PROLACTIN [REF] Stat 11/21/18 Breakfast Nothing per Oral Now Diet [DIET] - Assessment/Plan Last 24 Hours: My Active Orders 11/21/18 06:19 Cardiac Monitoring [RC] STAT EKG Documentation Completion [RC] ASDIRECTED NIH Stroke Scale [RC] ASDIRECTED Oxygen Therapy, ED [RC] CONTINUOUS Peripheral IV Care [RC] . DIRECTED Pulse Oximetry [RC] CONTINUOUS Up With Assistance [RC] ASDIRECTED Vital Signs [RC] PFP Chest 1V Frontal [CR] Stat Head wo Cont [CT] Stat Sodium Chloride 0.9% [Saline Flush] 10 ml FLUSH ASDIRECTED PRN Obtain Past Medical Record [OM.PC] Stat Peripheral IV Insertion Adult [OM.PC] Stat Resuscitation Status Stat EKG 12 Lead [EK] Stat 11/21/18 06:21 CULTURE URINE [RM] Routine URINALYSIS W/MICROSCOPIC [UA W/MICROSCOPIC] [URIN] Routine Blood Culture x2 Reflex Set [OM.PC] Urgent 11/21/18 06:30 CULTURE BLOOD [BC] Stat 11/21/18 07:00 CULTURE BLOOD [BC] Stat PROLACTIN [REF] Stat 11/21/18 Breakfast Nothing per Oral Now Diet [DIET] Assessment:: As above Plan: As above. Extensive precautions were given to the patient's son, who is in agreement with the treatment plan. Ambulance transfer with burring machine operator accompaniment to [facility].
[2018-11-21 07:10] LABS: CHLORIDE,CL 111 mmol/L (98-107); SODIUM,NA 148 mmol/L (136-145)
[2018-11-21] MEDS ORDERED: Aspirin 300 MG Supp RECTAL ONE (08:12)
[2018-11-21 08:57] VITALS: BP 137/85
== END 2018-11-21 08:27 ==
LOC: LL.ED 05:55
DX: I63.9 Cerebral infarction, unspecified (principal); I13.2 Hypertensive heart and chronic kidney disease with heart failure and with stage 5 chronic kidney disease, or end stage renal disease; I50.9 Heart failure, unspecified; N18.5 Chronic kidney disease, stage 5; E11.22 Type 2 diabetes mellitus with diabetic chronic kidney disease; D63.1 Anemia in chronic kidney disease; E11.40 Type 2 diabetes mellitus with diabetic neuropathy, unspecified; R79.89 Other specified abnormal findings of blood chemistry; I49.3 Ventricular premature depolarization; F09 Unspecified mental disorder due to known physiological condition; F20.9 Schizophrenia, unspecified; G20 Parkinson's disease; E78.5 Hyperlipidemia, unspecified; K21.9 Gastro-esophageal reflux disease without esophagitis; D64.9 Anemia, unspecified; G30.9 Alzheimer's disease, unspecified; Z98.51 Tubal ligation status; Z90.710 Acquired absence of both cervix and uterus; Z88.0 Allergy status to penicillin; Z79.82 Long term (current) use of aspirin; Z79.899 Other long term (current) drug therapy; Z99.2 Dependence on renal dialysis; Z87.891 Personal history of nicotine dependence
CPT/HCPCS: 36415; 70450; 71045; 80053; 82550; 82553; 83605; 83735; 83880; 84146; 84443; 84484; 84550; 85025; 85379; 85610; 85730; 87040; 93005; 96374; 99285; A9270; J3490

== ENCOUNTER 2019-01-28 09:43 | Inpatient (IN) | payer MEDICARE, MEDICAID ==
[2019-01-28] MEDS ORDERED: Famotidine 20 MG/2 ML SDV IVPUSH ONE (09:46)
--- NOTE | 2019-01-28 09:46 | EDM.PDOC ---
ED HPI GENERAL MEDICAL PROBLEM - General Chief Complaint: General Stated Complaint: lethergy, blank staring Time Seen by Provider: 01/28/19 09:46 Source of Information: Reports: Patient, Old Records ([facility] chart/EMR), Other ([facility]) History Limitations: Reports: Altered Mental Status - History of Present Illness INITIAL COMMENTS - FREE TEXT/NARRATIVE: The patient was brought to the emergency room via transport vehicle from [facility] with delayed transfer to this facility per the patient's family's request. Since about 19:30 hours yesterday evening patient was more lethargic in nature and tachycardic with the patient's family refusing ambulance transfer at that time and also this morning. She has been refusing her medication with additional moderate to severe anorexia during the last couple of days with limited history obtained from the intermediate. The patient is an extremely poor historian secondary to her baseline organic brain syndrome , current symptoms, and psychosis. Patient did have some blood work yesterday with her underwater hunter trapper recommended emergency room evaluation today. No apparent chest pain or diaphoresis, or other anginal-type symptoms. No known abdominal pain, nausea, emesis, etc. No apparent recent fever, cough, dyspnea, seizure activity, etc.. She does have a known history of chronic renal disease with secondary acute encephalopathy on 11/21/18. The patient is waiting to start dialysis. No known headaches, visual changes, seizure activity, etc. , although note increased sedation as above with additional somewhat increased chronic right-sided leaning. Onset: Gradual Onset Date: 01/27/19 Onset Time: 19:30 Duration: Getting Worse Location: Reports: Other (No pain) Quality: Reports: Same as Previous Episode Severity: Moderate Improves with: Reports: None Worsens with: Reports: None Context: Reports: Other (As above). Denies: Sick Contact, Trauma Associated Symptoms: Reports: Confusion, Loss of Appetite, Malaise, Weakness ( Right-sided). Denies: Chest Pain, Cough, Diaphoresis, Fever/Chills, Headaches, Nausea/Vomiting, Rash, Seizure, Shortness of Breath, Syncope Treatments BUCKET HOOKER: Reports: Other (see below) (None) - Related Data Allergies Allergy/AdvReac Type Severity Reaction Status Date / Time Penicillins Allergy Cannot Verified 01/28/19 09:48 Remember Home Meds: Home Meds ARIPiprazole [Abilify] 15 mg PO 199907/13/15 [History] Acetaminophen [Acetaminophen ER] 650 mg PO Q4HR PRN 07/13/15 [History] Aspirin [Halfprin] 81 mg PO DAILY 07/13/15 [History] Donepezil HCl [Aricept] 10 mg PO ,07/13/15 [History] Metoprolol Succinate [Toprol XL] 0.5 tab PO DAILY 07/13/15 [History] atorvaSTATin [Lipitor] 40 mg PO 199907/13/15 [History] traMADol HCl [Ultram] 50 mg PO BEDTIME 07/13/15 [History] Allopurinol [Zyloprim] 300 mg PO DAILY 04/17/18 [History] Bumetanide [Bumex] 2 mg PO DAILY 04/17/18 [History] Divalproex Sodium [Depakote Sprinkle] 125 mg PO BIDMEALS 04/17/18 [History] Ferrous Fumarate/Vitamin C [Vitron-C] 2 tab PO DAILY@1000 04/17/18 [History] Gabapentin [Neurontin] 400 mg PO DAILY 04/17/18 [History] Magnesium Hydroxide [Milk of Magnesia] 30 ml PO DAILY PRN 04/17/18 [History] Nystatin 1 each TOP BID PRN 04/17/18 [History] Levothyroxine 125 mcg PO ACBREAKFAST 11/21/18 [History] Potassium Chloride 20 meq PO TID 01/28/19 [History] metOLazone [Metolazone] 1 tab PO MO 01/28/19 [History] Past Medical History HEENT History: Reports: Other (See Below) (Unknown) Cardiovascular History: Reports: Arrhythmia, CAD, Cardiomyopathy, Heart Failure , High Cholesterol, Hypertension, PVD, Other (See Below). Denies: Afib, Aneurysm, Blood Clots/VTE/DVT, MN, Syncope Other Cardiovascular History: Chronic dependent edema and recurrent CHF with moderate cardiomegaly, left atrial enlargement, left ventricular hypertrophy and grade 1 diastolic dysfunction by echocardiogram as below. D-dimer elevation chronic with negative workup. PVCs diagnosed on 11/21/18. Questionable right proximal internal artery stenosis versus artifact by MRA on 11/21/18. Respiratory History: Reports: Bronchitis, Recurrent, COPD, Intubation, Previous , Pneumonia, Recurrent, Pulmonary Fibrosis, Other (See Below). Denies: Asthma, Intubation, Difficult, PE, Pneumothorax, Sleep Apnea Other Respiratory History: Bilateral pulmonary nodules by CT scans as below. Gastrointestinal History: Reports: Cholelithiasis, Diverticulosis, Fecal Incontinence, GERD, Other (See Below) Other Gastrointestinal History: Gallbladder sludge. Dysphagia. Genitourinary History: Reports: Acute Renal Failure, Chronic Renal Insuffiency, Dialysis, Diabetic Nephropathy, Renal Disease, Urinary Incontinence, UTI, Recurrent, Other (See Below) Other Genitourinary History: Grade 4 renal insufficiency SENIOR RESERVOIR ENGINEER History: Reports: LMP (Approximate): Menopausal Musculoskeletal History: Reports: Arthritis, Back Pain, Chronic, Fracture, Gout , Neck Pain, Chronic, Osteoarthritis, Osteoporosis, Other (See Below) Other Musculoskeletal History: Hyperuricemia. Old right fourth rib fracture by chest x-ray on 11/21/18. Neurological History: Reports: Alzheimers Disease, CVA, Neuropathy, Diabetic, Neuropathy, Peripheral, Other (See Below). Denies: TIA Other Neuro History: Acute encephalopathy secondary to renal disease on 11/21/18 with negative workup for acute CVA at that time despite mild right-sided weakness. Cerebral atrophy and cerebovascular disease by CT scan. Chronic AMS. Suspected CVA with left-sided hemiparesis on 07/31/18 with negative workup as below. Psychiatric History: Reports: Alzheimers Disease, Anxiety, Bipolar ( Schizoaffective disorder), Dementia, Schizophrenia, Other (See Below) Other Psychiatric History: History of lithium toxicity. Endocrine/Metabolic History: Reports: Diabetes, Type II, Hyperparathyroidism, Hypothyroidism, IDDM, Multinodular Thyroid, Obesity/BMI 30+, Osteopenia, Osteoporosis, Other (See Below). Denies: Diabetes Mellitus, Type 3c Other Endocrine/Metabolic History: Large thyroid gland by ultrasound and CT scans with multiple nodules noted. Postoperative hypothyroidism. Secondary hyperparathyroidism. Hypoalbuminemia. Hypercalcemia/hypocalcemia,hypokalemia, hypernatremia. Hematologic History: Reports: Anemia, Iron Deficiency, Other (See Below). Denies: Blood Transfusion(s) Other Hematologic History: Additional chronic anemia secondary to renal disease. Dermatologic History: Reports: Venous Stasis Dermatitis, Other (See Below) Other Dermatologic History: Recurrent tinea - Infectious Disease History Infectious Disease History: Reports: Chicken Pox, MRSA (In July 2013) - Past Surgical History HEENT Surgical History: Reports: Oral Surgery, Other (See Below) Other HEENT Surgeries/Procedures: Complete teeth extraction Cardiovascular Surgical History: Reports: Vascular Surgery, Other (See Below) Other Cardiovascular Surgeries/Procedures: Left arm AV shunt fistula placement on 10/08/17 and 05/23/18. Female Surgical History: Reports: Hysterectomy, Tubal Ligation Endocrine Surgical History: Reports: Thyroidectomy, Other (See Below) Other Endocrine Surgeries/Procedures: Thyroidectomy secondary to goiter as above on 09/02/14. - Past Imaging History Past Imaging History: Reports: Cardiac Echo (Echocardiogram on 03/12/17 with ejection fraction of 70%. Previous evaluation on 01/03/16 with ejection fraction of 5055 percent with findings as above.), CAT Scan (CT of the head on 11/21/18, 07/31/18 and 03/11/18. CT of the CT of the right tibial fibular area on 05/24/17. CT of the chest on 12/10/14 and 06/11/14. CT of the soft tissue of the neck on . CT of the abdomen and pelvis on 11/15/16.), DEXA Scan (04/11/15), Mammogram (Last on 06/11/14), MRA (MRA of the brain and neck on 11/21/18.), MRI ( MRI of the brain on 11/21/18 and 07/31/18.), Swallow Study (Negative on 08/01/18.) , Ultrasound (Bilateral renal ultrasound on 11/14/16 and 07/15/15 Thyroid ultrasound on 06/02/14), Venous Doppler (Bilateral lower extremities on 08/01/15, , and 05/23/14. Left leg on 03/28/15. Right leg on 05/25/14) Social & Family History - Family History Family Medical History: Unobtainable - Tobacco Use Smoking Status *Q: Former Smoker Tobacco Use Within Last Twelve Months: No Packs/Tins Daily Comment: Stopped tobacco use on 08/07/13. Used Tobacco, but Quit: Yes Smoking Cessation Information Provided To Patient: No Second Hand Smoke Education Provided: No - Living Situation & Occupation Living situation: Reports: Extended Care Facility ([facility] in [facility]) ED ROS GENERAL - Review of Systems Review Of Systems: ROS reveals no pertinent complaints other than HPI. ED EXAM, GENERAL - Physical Exam Exam: See Below Exam Limited By: Altered Mental Status General Appearance: No Apparent Distress, Lethargic Eye Exam: Bilateral Eye: EOMI, Normal Fundi, Normal Inspection (No nystagmus), PERRL Ears: Normal External Exam, Normal Canal, Hearing Grossly Normal, Normal TMs Nose: Normal Inspection, Normal Mucosa, No Blood Throat/Mouth: Normal Lips, Normal Gums, Normal Oropharynx, Normal Voice, No Airway Compromise, Other (Large protruding tongue). No: Normal Teeth (Complete absent dentition), Dysphagia, Perioral Cyanosis Head: Atraumatic, Normocephalic. No: Facial Swelling, Facial Tenderness, Sinus Tenderness Neck: Supple, Non-Tender, Full Range of Motion, Carotid Bruit (Stable mild bilateral carotid bruits), Limited Range of Motion. No: Lymphadenopathy (L), Lymphadenopathy (R), Thyromegaly Respiratory/Chest: No Respiratory Distress, No Accessory Muscle Use, Chest Non- Tender, Rales (Mild bilateral basilar). No: Pleural Rub, Retractions Cardiovascular: Normal Peripheral Pulses, No Edema, No Gallop, No JVD, Tachycardia, Systolic Murmur (Stable mild 1/6 CUONG of the aortic valve), Extra Beats (Occasional PVCs). No: Regular Rate, Rhythm, Gallop/S3, Gallop/S4 Peripheral Pulses: 2+: Radial (L), Radial (R), Dorsalis Pedis (L), Dorsalis Pedis (R) GI/Abdominal: Normal Bowel Sounds, Soft, Non-Tender, No Organomegaly, No Distention, No Abnormal Bruit, No Mass, Pelvis Stable, Other (Obese). No: Guarding (Female) Exam: Deferred Rectal (Female) Exam: Deferred Back Exam: Other (Mild kyphosis). No: CVA Tenderness (L), CVA Tenderness (R), Muscle Spasm, Paraspinal Tenderness, Vertebral Tenderness Extremities: No Pedal Edema, Normal Capillary Refill, Other (Left forearm AV fistula. Moderate venous stasis dermatitis of the lower extremities.). No: Deanne's Sign Neurological: Normal Reflexes (Negative Babinski's with patient unable to perform complete neurological exam), Confused, Other (Right leaning/hemiparesis? Chronic) Psychiatric: Flat Affect (Sedated) Skin Exam: Other (Venous stasis dermatitis as above.). No: Diaphoretic Lymphatic: No Adenopathy EKG INTERPRETATION EKG Date: 01/28/19 Time: 09:52 Rhythm: Other (Sinus tachycardia with occasional PVCs) Rate (Beats/Min): 103 Joanna: Normal (Neutral cardiac axis) P-Wave: Present (I'll diffuse biphasic P waves) QRS: Normal (QRS interval of 0.08 seconds with somewhat low voltage) ST-T: Other (Stable T-wave inversion in lead 3 with new T-wave inversion in lead aVL and additional nonspecific ST changes in leads V4 through V6) QT: Normal NJ/PQ Interval: 0.18 seconds with extreme poor R-wave progression in the anterior leads Comparison: Change From Previous EKG EKG Interpretation Comments: 1. New possible inferolateral cardiac ischemia 2. Sinus tachycardia 3. PVCs Course - Vital Signs Last Recorded V/S: Last Vital Signs Temp 36.8 C 01/28/19 09:46 Pulse 104 H 01/28/19 10:12 Resp 8 L 01/28/19 10:12 BP 121/90 01/28/19 10:12 Pulse Ox 100 01/28/19 10:12 Vital Signs - 24 hr 01/28/19 01/28/19 01/28/19 09:46 10:10 10:12 Temperature [ 36.8 C Temporal] Pulse, 105 H 102 H 104 H Peripheral [ Left Pulse Oximetry] Respiratory 8 L 8 L 8 L Rate Blood Pressure 180/131 H 131/77 121/90 [Right Upper Arm] O2 Sat by Pulse 96 97 100 Oximetry 01/28/19 01/28/19 10:27 10:42 Temperature [ Temporal] Pulse, 99 96 Peripheral [ Left Pulse Oximetry] Respiratory 10 L 11 L Rate Blood Pressure 156/73 H 135/69 [Right Upper Arm] O2 Sat by Pulse 98 99 Oximetry - Orders/Labs/Meds Orders: Active Orders 24 hr Category Date Time Status Cardiac Monitoring [RC] . DIRECTED Care 01/28/19 09:46 Active EKG Documentation Completion [RC] ASDIRECTED Care 01/28/19 09:46 Active Oxygen Therapy, ED [RC] PRN Care 01/28/19 09:46 Active Peripheral IV Care [RC] . DIRECTED Care 01/28/19 09:46 Active Pulse Oximetry [RC] CONTINUOUS Care 01/28/19 09:46 Active Up With Assistance [RC] PFP Care 01/28/19 09:46 Active Vital Signs [RC] PFP Care 01/28/19 09:46 Active Nothing per Oral Now Diet [DIET] Diet 01/28/19 Breakfast Active Chest 1V Frontal [CR] Stat Exams 01/28/19 09:46 Taken Sodium Chloride 0.9% [Saline Flush] Med 01/28/19 09:46 Active 10 ml FLUSH ASDIRECTED PRN Obtain Past Medical Record [OM.PC] Urgent Oth 01/28/19 09:46 Active Peripheral IV Insertion Adult [OM.PC] Stat Oth 01/28/19 09:46 Ordered Resuscitation Status Stat Resus Stat 01/28/19 09:46 Ordered Medication Orders Sodium Chloride (Saline Flush) 10 ml FLUSH ASDIRECTED PRN PRN Reason: Keep Vein Open Last Admin: 01/28/19 10:03 Dose: 10 ml Labs: Laboratory Tests 01/28/19 01/28/19 01/28/19 Range/Units 09:50 09:50 09:50 WBC 10.2 (4.0-10.2) K/uL RBC 4.40 (3.77-5.09) M/uL Hgb 14.3 D (11.7-15.5) g/dL Hct 44.8 (34.0-46.0) % MCV 101.8 H (84.0-98.0) fL MCH 32.5 (28.2-33.3) pg MCHC 31.9 (31.7-36.0) g/dL RDW 16.3 H (11.2-14.1) % Plt Count 181 (150-350) K/uL Neut % (Auto) 69.6 (45.0-80.0) % Lymph % (Auto) 21.1 (10.0-50.0) % [place] % (Auto) 7.7 (2.0-14.0) % Eos % (Auto) 0.5 (0.0-5.0) % Baso % (Auto) 1.1 (0.0-2.0) % Neut # (Auto) 7.08 H (1.40-7.00) K/uL Lymph # (Auto) 2.14 (0.50-3.50) K/uL [place] # (Auto) 0.78 (0.00-1.00) K/uL Eos # (Auto) 0.05 (0.00-0.50) K/uL Baso # (Auto) 0.11 (0.00-0.20) K/uL PT 10.7 (9.5-12.0) SEC INR 1.0 APTT 26.2 (21.0-31.3) SEC D-Dimer, Quantitative 3330 H (0-400) ng/mL Sodium (136-145) mmol/L Potassium (3.5-5.1) mmol/L Chloride (98-107) mmol/L Carbon Dioxide (21.0-32.0) mmol/L BUN (7-18) mg/dL Creatinine (0.51-1.17) mg/dL Est Cr Clr Drug Dosing Estimated GFR (MDRD) mL/min Glucose (74-106) mg/dL Lactic Acid (0.4-2.0) mmol/L Uric Acid (2.6-7.2) mg/dL Calcium (8.5-10.1) mg/dL Magnesium (1.8-2.4) mg/dL Total Bilirubin (0.2-1.0) mg/dL AST (15-37) U/L ALT (12-78) U/L Alkaline Phosphatase (46-116) IU/L Creatine Kinase (26-308) U/L Creatine Kinase Index (0.0-2.5) % CK-MB (CK-2) (0.00-3.60) ng/mL Troponin I (0.000-0.056) ng/mL NT-Pro-B Natriuret Pep (0-125) pg/mL Total Protein (6.4-8.2) g/dL Albumin (3.4-5.0) g/dL TSH, Ultra Sensitive (0.358-3.740) mIU/mL 01/28/19 01/28/19 Range/Units 09:50 09:50 WBC (4.0-10.2) K/uL RBC (3.77-5.09) M/uL Hgb (11.7-15.5) g/dL Hct (34.0-46.0) % MCV (84.0-98.0) fL MCH (28.2-33.3) pg MCHC (31.7-36.0) g/dL RDW (11.2-14.1) % Plt Count (150-350) K/uL Neut % (Auto) (45.0-80.0) % Lymph % (Auto) (10.0-50.0) % Cabell % (Auto) (2.0-14.0) % Eos % (Auto) (0.0-5.0) % Baso % (Auto) (0.0-2.0) % Neut # (Auto) (1.40-7.00) K/uL Lymph # (Auto) (0.50-3.50) K/uL Cabell # (Auto) (0.00-1.00) K/uL Eos # (Auto) (0.00-0.50) K/uL Baso # (Auto) (0.00-0.20) K/uL PT (9.5-12.0) SEC INR APTT (21.0-31.3) SEC D-Dimer, Quantitative (0-400) ng/mL Sodium 146 H (136-145) mmol/L Potassium 4.3 (3.5-5.1) mmol/L Chloride 105 (98-107) mmol/L Carbon Dioxide 29.4 (21.0-32.0) mmol/L BUN 69 H D (7-18) mg/dL Creatinine 2.96 H (0.51-1.17) mg/dL Est Cr Clr Drug Dosing TNP Estimated GFR (MDRD) 16 mL/min Glucose 181 H (74-106) mg/dL Lactic Acid 1.8 (0.4-2.0) mmol/L Uric Acid 7.1 (2.6-7.2) mg/dL Calcium 11.7 H D (8.5-10.1) mg/dL Magnesium 2.3 (1.8-2.4) mg/dL Total Bilirubin 0.4 (0.2-1.0) mg/dL AST 17 (15-37) U/L ALT 13 (12-78) U/L Alkaline Phosphatase 65 (46-116) IU/L Creatine Kinase 44 (26-308) U/L Creatine Kinase Index 1.1 (0.0-2.5) % CK-MB (CK-2) 0.50 (0.00-3.60) ng/mL Troponin I 0.035 (0.000-0.056) ng/mL NT-Pro-B Natriuret Pep 712 H (0-125) pg/mL Total Protein 9.0 H (6.4-8.2) g/dL Albumin 3.7 (3.4-5.0) g/dL TSH, Ultra Sensitive 1.729 (0.358-3.740) mIU/mL Meds: Medications Generic Name Dose Route Start Last Admin Trade Name Freq PRN Reason Stop Dose Admin Sodium Chloride 10 ml 01/28/19 09:46 01/28/19 10:03 Saline Flush FLUSH 10 ml ASDIRECTED PRN Administration Keep Vein Open Discontinued Medications Generic Name Dose Route Start Last Admin Trade Name Freq PRN Reason Stop Dose Admin Famotidine 40 mg 01/28/19 09:46 01/28/19 10:03 Pepcid IVPUSH 01/28/19 09:47 40 mg ONETIME ONE Administration - Radiology Interpretation Free Text/Narrative:: vp ad products and planning shows mild sinus tachycardia in the 100s with very occasional PVCs. Chest x-ray, portable, shows borderline cardiomegaly, COPD, and pulmonary hypertension and/or mild centralized CHF. No pulmonary infiltrates, pneumothorax , etc. Mild prominence of the proximal aortic arch. Departure - Departure Time of Disposition: 11:00 Disposition: Admitted As Inpatient 66 Condition: Poor Clinical Impression: Encephalopathy, Organic brain syndrome, Hypothyroidism (acquired), D-dimer, elevated, PVCs (premature ventricular contractions), Osteoarthritis, Hypoalbuminemia Diabetes mellitus Qualifiers: Diabetes mellitus type: type 2 Diabetes mellitus dedicated intermodal truck driver insulin use: with dedicated intermodal truck driver use Diabetes mellitus complication status: with kidney complications Diabetes mellitus complication detail: with chronic kidney disease Chronic kidney disease stage: stage 5, not on chronic dialysis Qualified Code(s): E11.22 - Type 2 diabetes mellitus with diabetic chronic kidney disease Schizophrenia Qualifiers: Schizophrenia type: unspecified Qualified Code(s): F20.9 - Schizophrenia, unspecified CHF (congestive heart failure) Qualifiers: Heart failure type: combined systolic and diastolic Heart failure chronicity: acute on chronic Qualified Code(s): I50.43 - Acute on chronic combined systolic (congestive) and diastolic (congestive) heart failure Chronic kidney disease Qualifiers: Chronic kidney disease stage: stage 5, not on chronic dialysis Qualified Code(s ): N18.5 - Chronic kidney disease, stage 5 - Discharge Information *PRESCRIPTION DRUG MONITORING PROGRAM REVIEWED*: Not Applicable *COPY OF PRESCRIPTION DRUG MONITORING REPORT IN PATIENT DEISI: Not Applicable - Problem List & Annotations (1) CHF (congestive heart failure) SNOMED Code(s): 58608003 Code(s): I50.9 - HEART FAILURE, UNSPECIFIED Status: Acute Priority: High Current Visit: No Onset Date: 07/31/18 Annotation/Comment:: Moderate BNP elevation with secondary mild change of troponin I, which is normal. EKG shows some possible inferolateral cardiac ischemia as above with otherwise normal cardiac enzymes with no apparent recent anginal complaints. Chest pain protocol was not initiated in the emergency room. Known cardiac disease as above. Note chronic d-dimer elevation with negative workup in the past. No clinical evidence of DVT or PE. Mild CHF based on today's chest x-ray with initiation of rule out MN orders. Cardiology consultation depending on her clinical course. Note current FULL CODE STATUS despite patient's history of organic brain syndrome, etc. Note telephone consultation with the patient's daughter, Bria, at 10:40 a.m., who does agree to hospitalization in this facility. Her son /PASCALEA, Natalia, could not be reached by telephone today. Qualifiers: Heart failure type: combined systolic and diastolic Heart failure chronicity: acute on chronic Qualified Code(s): I50.43 - Acute on chronic combined systolic (congestive) and diastolic (congestive) heart failure (2) Encephalopathy SNOMED Code(s): 61854902 Code(s): G93.40 - ENCEPHALOPATHY, UNSPECIFIED Status: Acute Priority: High Current Visit: Yes Onset Date: ~01/27/19 Annotation/Comment:: As above with previous episode on 11/21/18 secondary to her renal disease per [facility]. (3) Chronic kidney disease SNOMED Code(s): 603813665 Code(s): N18.9 - CHRONIC KIDNEY DISEASE, UNSPECIFIED Status: Acute Priority: High Current Visit: No Annotation/Comment:: Stable renal insufficiency based on our records with patient about ready to restart dialysis. Initiate IV Lasix therapy with caution with PTH and phosphate level with next set of blood work. Nephrology consultation, hospital transfer, etc. depending on her clinical course. Qualifiers: Chronic kidney disease stage: stage 5, not on chronic dialysis Qualified Code(s): N18.5 - Chronic kidney disease, stage 5 (4) D-dimer, elevated SNOMED Code(s): 764857801 Code(s): R79.89 - OTHER SPECIFIED ABNORMAL FINDINGS OF BLOOD CHEMISTRY Status: Acute Priority: High Current Visit: No Onset Date: 07/31/18 Annotation/Comment:: Note history of previous chronic d-dimer elevation as above. (5) Organic brain syndrome SNOMED Code(s): 745359324 Code(s): F09 - UNSP MENTAL DISORDER DUE TO KNOWN PHYSIOLOGICAL CONDITION Status: Chronic Priority: High Current Visit: No Annotation/Comment:: Increased lethargy secondary to probable returned acute encephalopathy. No direct evidence of acute CVA with stroke code not called and multiple previous negative workups including MRA, MRI, etc. at [facility] after transfer to that facility on 11/21/18 as above. (6) Diabetes mellitus SNOMED Code(s): 92438764 Code(s): E11.9 - TYPE 2 DIABETES MELLITUS WITHOUT COMPLICATIONS Status: Chronic Priority: Medium Current Visit: No Annotation/Comment:: Stable by history. Note diabetic nephropathy. Glycosylated hemoglobin in the a.m. Qualifiers: Diabetes mellitus type: type 2 Diabetes mellitus shelter insulin use: with dedicated intermodal truck driver use Diabetes mellitus complication status: with kidney complications Diabetes mellitus complication detail: with chronic kidney disease Chronic kidney disease stage: stage 5, not on chronic dialysis Qualified Code(s): E11.22 - Type 2 diabetes mellitus with diabetic chronic kidney disease; N18.5 - Chronic kidney disease, stage 5; Z79.4 - FPC ( current) use of insulin (7) Hypothyroidism (acquired) SNOMED Code(s): 202491227 Code(s): E03.9 - HYPOTHYROIDISM, UNSPECIFIED Status: Chronic Priority: Medium Current Visit: No Annotation/Comment:: Under therapy with normal TSH today. Note elevated calcium level with history of secondary hyperparathyroidism from her renal disease. PTH, phosphate level, etc. to be conducted during this hospitalization. IV Lasix for now as above. (8) PVCs (premature ventricular contractions) SNOMED Code(s): 85958159 Code(s): I49.3 - VENTRICULAR PREMATURE DEPOLARIZATION Status: Acute Priority: Medium Current Visit: No Onset Date: 11/21/18 Annotation/Comment :: Nonsymptomatic. Mild sinus tachycardia. Observe for now. (9) Schizophrenia SNOMED Code(s): 11047629 Code(s): F20.9 - SCHIZOPHRENIA, UNSPECIFIED Status: Chronic Priority: Medium Current Visit: No Annotation/Comment:: Note history of schizophrenia with anxiety depression disorder and current organic brain syndrome. Patient has not been taking her medications for the last couple of days as above. Continue medication changes during this hospitalization Qualifiers: Schizophrenia type: unspecified Qualified Code(s): F20.9 - Schizophrenia, unspecified (10) Osteoarthritis SNOMED Code(s): 635596387 Code(s): M19.90 - UNSPECIFIED OSTEOARTHRITIS, UNSPECIFIED SITE Status: Chronic Priority: Medium Current Visit: Yes Annotation/Comment:: Stable by history Qualifiers: Osteoarthritis location: multiple joints Osteoarthritis type: primary Qualified Code(s): M15.0 - Primary generalized (osteo)arthritis (11) Hypoalbuminemia SNOMED Code(s): 316389235 Code(s): E88.09 - [facility] DISORDERS OF PLASMA-PROTEIN METABOLISM, NEC Status: Acute Priority: Medium Current Visit: Yes Onset Date: 11/21/18 Annotation/Comment:: Previous decreased albumin with normal level today, however elevated protein level. Observe for now. Consider electroimmunophoresis. - Problem List Review Problem List Initiated/Reviewed/Updated: Yes - My Orders Last 24 Hours: My Active Orders 01/28/19 09:46 Cardiac Monitoring [RC] . DIRECTED EKG Documentation Completion [RC] ASDIRECTED Oxygen Therapy, ED [RC] PRN Peripheral IV Care [RC] . DIRECTED Pulse Oximetry [RC] CONTINUOUS Up With Assistance [RC] PFP Vital Signs [RC] PFP Chest 1V Frontal [CR] Stat Sodium Chloride 0.9% [Saline Flush] 10 ml FLUSH ASDIRECTED PRN Obtain Past Medical Record [OM.PC] Urgent Peripheral IV Insertion Adult [OM.PC] Stat Resuscitation Status Stat 01/28/19 Breakfast Nothing per Oral Now Diet [DIET] - Assessment/Plan Admission H&P: Please use this note as an admission H&P Last 24 Hours: My Active Orders 01/28/19 09:46 Cardiac Monitoring [RC] . DIRECTED EKG Documentation Completion [RC] ASDIRECTED Oxygen Therapy, ED [RC] PRN Peripheral IV Care [RC] . DIRECTED Pulse Oximetry [RC] CONTINUOUS Up With Assistance [RC] PFP Vital Signs [RC] PFP Chest 1V Frontal [CR] Stat Sodium Chloride 0.9% [Saline Flush] 10 ml FLUSH ASDIRECTED PRN Obtain Past Medical Record [OM.PC] Urgent Peripheral IV Insertion Adult [OM.PC] Stat Resuscitation Status Stat 01/28/19 Breakfast Nothing per Oral Now Diet [DIET] Assessment:: As above Plan: As above. Extensive precautions were given to the patient's family, who is in agreement with the treatment plan. The patient will require about 3-4 days of inpatient/acute care secondary to multiple health problems as above.
[2019-01-28] MEDS: Sodium Chloride 0.9% 10 ML Syringe FLUSH PRN ×4 (10:03→22:53)
[2019-01-28 10:28] LABS: CHLORIDE,CL 105 mmol/L (98-107); SODIUM,NA 146 mmol/L (136-145)
[2019-01-28] MEDS ORDERED: Acetaminophen 325 MG Tab PO PRN ×2 (11:14)
[2019-01-28] MEDS ORDERED: Magnesium Hydroxide 400 MG/5 ML Susp 30 ML Cup PO PRN (11:14)
[2019-01-28] MEDS ORDERED: Enoxaparin 30 MG/0.3 ML Syringe SUBCUT SCH (12:00)
[2019-01-28] MEDS: Furosemide 40 MG/4 ML VIAL IVPUSH SCH ×2 (13:00→19:50)
[2019-01-28] MEDS: Potassium Chloride 20 MEQ Tab.ER PO SCH ×2 (13:04→17:44)
[2019-01-28] MEDS ORDERED: Enoxaparin 60 MG/0.6 ML Syringe SUBCUT ONE (15:25)
--- NOTE | 2019-01-28 15:32 | PCM.SN ---
- Free Text/Narrative Note: Telephone consultation with [employer] tech. 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 Lovenox dosing obtained from [place], secondary to patient's end stage renal disease.
[2019-01-28] MEDS: Potassium Chloride 10 MEQ in Premix Bag 1 BAG IV SCH ×7 (17:32→22:53)
[2019-01-28] MEDS ORDERED: atorvaSTATin 40 MG Tab PO SCH (20:00)
[2019-01-29] MEDS: Furosemide 40 MG/4 ML VIAL IVPUSH SCH ×2 (04:04→20:17)
[2019-01-29] MEDS: Sodium Chloride 0.9% 10 ML Syringe FLUSH PRN ×3 (04:04→20:18)
[2019-01-29] MEDS ORDERED: Non-Formulary Medication 1 Each (Levothyroxine [Levothyroxine] 125 MCG) PO SCH (07:30)
[2019-01-29 07:45] LABS: HEMOGLOBIN A1C 7.1 % (4.3-5.7)
[2019-01-29] MEDS ORDERED: Non-Formulary Medication 1 Each (Allopurinol [Zyloprim] 300 MG) PO SCH (08:00)
[2019-01-29] MEDS ORDERED: Aspirin 81 MG Tab.EC PO SCH (08:00)
[2019-01-29] MEDS ORDERED: Allopurinol 100 MG Tab PO SCH (08:00)
[2019-01-29 08:24] LABS: CHLORIDE,CL 106 mmol/L (98-107); SODIUM,NA 148 mmol/L (136-145)
[2019-01-29] MEDS: Potassium Chloride 20 MEQ Tab.ER PO SCH (08:37)
[2019-01-29] MEDS: Levothyroxine 25 MCG Tab PO SCH (08:37)
[2019-01-29] MEDS: Levothyroxine 100 MCG Tab PO SCH (08:37)
--- NOTE | 2019-01-29 10:22 | PCM.PN ---
- General Info Date of Service: 01/29/19 Admission Dx/Problem (Free Text): 1. Acute encephalopathy 2. Renal insufficiency Subjective Update: Patient continues to be very lethargic and not taking any oral medications, including a couple of days prior to admission as per emergency room note. She is a poor historian secondary to her lethargy, however no apparent current discomfort or pain Functional Status: Reports: Pain Controlled - Review of Systems General: Reports: Weakness (Stable chronic), Malaise, Appetite (No oral intake) . Denies: Fever, Chills, Night Sweats HEENT: Reports: No Symptoms Pulmonary: Reports: No Symptoms. Denies: Shortness of Breath, Cough, Wheezing Cardiovascular: Reports: No Symptoms. Denies: Edema Gastrointestinal: Reports: No Symptoms. Denies: Constipation (No bowel movement since admission) Genitourinary: Reports: No Symptoms, Other (Newly diagnosed UTI) Musculoskeletal: Reports: No Symptoms Skin: Reports: Bruising (Mild). Denies: Diaphoresis, Rash Neurological: Reports: Confusion, Pre-Existing Deficit, Weakness, Other ( Sedation as above) Psychiatric: Reports: Confusion. Denies: Agitation, Cravings, Hallucinations - Patient Data Vitals - Most Recent: Last Vital Signs Temp 36.1 C 01/29/19 08:00 Pulse 55 L 01/29/19 08:00 Resp 16 01/29/19 08:00 BP 157/74 H 01/29/19 08:00 Pulse Ox 93 L 01/29/19 08:00 Vital Signs - 24 hr 01/28/19 01/28/19 01/28/19 10:27 10:42 10:59 Temperature [ 36.5 C Temporal] Pulse, 99 96 97 Peripheral [ Left Pulse Oximetry] Respiratory 10 L 11 L 8 L Rate Blood Pressure 156/73 H 135/69 131/79 [Right Upper Arm] O2 Sat by Pulse 98 99 97 Oximetry 01/28/19 01/28/19 01/28/19 11:15 14:00 16:00 Temperature [ 36.2 C 36.4 C Temporal] Pulse, 61 91 Peripheral [ Left Pulse Oximetry] Respiratory 19 10 L Rate Blood Pressure 129/81 144/113 H [Right Upper Arm] O2 Sat by Pulse 96 91 L 100 Oximetry 01/28/19 01/28/19 01/29/19 19:14 23:12 04:00 Temperature [ 36.2 C 36.4 C Temporal] Pulse, 91 78 72 Peripheral [ Left Pulse Oximetry] Respiratory 12 20 16 Rate Blood Pressure 146/98 H 120/78 112/70 [Right Upper Arm] O2 Sat by Pulse 98 94 L 98 Oximetry 01/29/19 08:00 Temperature [ 36.1 C Temporal] Pulse, 55 L Peripheral [ Left Pulse Oximetry] Respiratory 16 Rate Blood Pressure 157/74 H [Right Upper Arm] O2 Sat by Pulse 93 L Oximetry Weight - Most Recent: 82.327 kg I&O - Last 24 Hours: Intake & Output 01/28/19 01/29/19 01/29/19 22:59 06:59 14:59 Intake Total 30 50 Balance 30 50 Imaging Impressions - Last 24 Hours: awake overnight monitor shows mild sinus pericardia with heart rate averaging in the 80s to 100s with occasional uniform PVCs Lab Results Last 24 Hours: Laboratory Results - last 24 hr 01/28/19 01/28/19 01/28/19 Range/Units 09:50 09:50 09:50 WBC 10.2 (4.0-10.2) K/uL RBC 4.40 (3.77-5.09) M/uL Hgb 14.3 D (11.7-15.5) g/dL Hct 44.8 (34.0-46.0) % MCV 101.8 H (84.0-98.0) fL MCH 32.5 (28.2-33.3) pg MCHC 31.9 (31.7-36.0) g/dL RDW 16.3 H (11.2-14.1) % Plt Count 181 (150-350) K/uL Neut % (Auto) 69.6 (45.0-80.0) % Lymph % (Auto) 21.1 (10.0-50.0) % [place] % (Auto) 7.7 (2.0-14.0) % Eos % (Auto) 0.5 (0.0-5.0) % Baso % (Auto) 1.1 (0.0-2.0) % Neut # (Auto) 7.08 H (1.40-7.00) K/uL Lymph # (Auto) 2.14 (0.50-3.50) K/uL [place] # (Auto) 0.78 (0.00-1.00) K/uL Eos # (Auto) 0.05 (0.00-0.50) K/uL Baso # (Auto) 0.11 (0.00-0.20) K/uL PT 10.7 (9.5-12.0) SEC INR 1.0 APTT 26.2 (21.0-31.3) SEC D-Dimer, Quantitative 3330 H (0-400) ng/mL Sodium (136-145) mmol/L Potassium (3.5-5.1) mmol/L Chloride (98-107) mmol/L Carbon Dioxide (21.0-32.0) mmol/L BUN (7-18) mg/dL Creatinine (0.51-1.17) mg/dL Est Cr Clr Drug Dosing Estimated GFR (MDRD) mL/min Glucose (74-106) mg/dL Hemoglobin A1c (4.3-5.7) % Lactic Acid (0.4-2.0) mmol/L Uric Acid (2.6-7.2) mg/dL Calcium (8.5-10.1) mg/dL Phosphorus (2.6-4.7) mg/dL Magnesium (1.8-2.4) mg/dL Iron (50-175) ug/dL TIBC (250-450) ug/dL % Saturation Ferritin (8-388) ng/mL Total Bilirubin (0.2-1.0) mg/dL AST (15-37) U/L ALT (12-78) U/L Alkaline Phosphatase (46-116) IU/L Creatine Kinase (26-308) U/L Creatine Kinase Index (0.0-2.5) % CK-MB (CK-2) (0.00-3.60) ng/mL Troponin I (0.000-0.056) ng/mL NT-Pro-B Natriuret Pep (0-125) pg/mL Total Protein (6.4-8.2) g/dL Albumin (3.4-5.0) g/dL Triglycerides (30-150) mg/dL Cholesterol (100-200) mg/dL LDL Cholesterol, Calc (0-100) mg/dL HDL Cholesterol (40-60) mg/dL Vitamin B12 (193-986) pg/mL Folate (8.6-58.9) ng/mL TSH, Ultra Sensitive (0.358-3.740) mIU/mL Specimen Type Urine Color Urine Appearance Urine pH (5.0-9.0) Ur Specific [place] (1.005-1.030) Urine Protein (NEGATIVE) mg/dL Urine Glucose (UA) (NEGATIVE) mg/dL Urine Ketones (NEGATIVE) mg/dL Urine Occult Blood (NEGATIVE) Urine Nitrite (NEGATIVE) Urine Bilirubin (NEGATIVE) Urine Urobilinogen (0.2-1.0) E.U./dL Ur Leukocyte Esterase (NEGATIVE) Urine RBC /HPF Urine WBC /HPF Ur Epithelial Cells /LPF Urine Bacteria (NONE TO FEW) /HPF 01/28/19 01/28/19 01/28/19 Range/Units 09:50 09:50 11:25 WBC (4.0-10.2) K/uL RBC (3.77-5.09) M/uL Hgb (11.7-15.5) g/dL Hct (34.0-46.0) % MCV (84.0-98.0) fL MCH (28.2-33.3) pg MCHC (31.7-36.0) g/dL RDW (11.2-14.1) % Plt Count (150-350) K/uL Neut % (Auto) (45.0-80.0) % Lymph % (Auto) (10.0-50.0) % [place] % (Auto) (2.0-14.0) % Eos % (Auto) (0.0-5.0) % Baso % (Auto) (0.0-2.0) % Neut # (Auto) (1.40-7.00) K/uL Lymph # (Auto) (0.50-3.50) K/uL [place] # (Auto) (0.00-1.00) K/uL Eos # (Auto) (0.00-0.50) K/uL Baso # (Auto) (0.00-0.20) K/uL PT (9.5-12.0) SEC INR APTT (21.0-31.3) SEC D-Dimer, Quantitative (0-400) ng/mL Sodium 146 H (136-145) mmol/L Potassium 4.3 (3.5-5.1) mmol/L Chloride 105 (98-107) mmol/L Carbon Dioxide 29.4 (21.0-32.0) mmol/L BUN 69 H D (7-18) mg/dL Creatinine 2.96 H (0.51-1.17) mg/dL Est Cr Clr Drug Dosing TNP Estimated GFR (MDRD) 16 mL/min Glucose 181 H (74-106) mg/dL Hemoglobin A1c (4.3-5.7) % Lactic Acid 1.8 (0.4-2.0) mmol/L Uric Acid 7.1 (2.6-7.2) mg/dL Calcium 11.7 H D (8.5-10.1) mg/dL Phosphorus (2.6-4.7) mg/dL Magnesium 2.3 (1.8-2.4) mg/dL Iron (50-175) ug/dL TIBC (250-450) ug/dL % Saturation Ferritin (8-388) ng/mL Total Bilirubin 0.4 (0.2-1.0) mg/dL AST 17 (15-37) U/L ALT 13 (12-78) U/L Alkaline Phosphatase 65 (46-116) IU/L Creatine Kinase 44 (26-308) U/L Creatine Kinase Index 1.1 (0.0-2.5) % CK-MB (CK-2) 0.50 (0.00-3.60) ng/mL Troponin I 0.035 (0.000-0.056) ng/mL NT-Pro-B Natriuret Pep 712 H (0-125) pg/mL Total Protein 9.0 H (6.4-8.2) g/dL Albumin 3.7 (3.4-5.0) g/dL Triglycerides (30-150) mg/dL Cholesterol (100-200) mg/dL LDL Cholesterol, Calc (0-100) mg/dL HDL Cholesterol (40-60) mg/dL Vitamin B12 (193-986) pg/mL Folate (8.6-58.9) ng/mL TSH, Ultra Sensitive 1.729 (0.358-3.740) mIU/mL Specimen Type [place] Urine Color Yellow Urine Appearance Cloudy Urine pH 6.5 (5.0-9.0) Ur Specific [place] 1.015 (1.005-1.030) Urine Protein 30 H (NEGATIVE) mg/dL Urine Glucose (UA) Negative (NEGATIVE) mg/dL Urine Ketones Trace H (NEGATIVE) mg/dL Urine Occult Blood Trace-intact H (NEGATIVE) Urine Nitrite Negative (NEGATIVE) Urine Bilirubin Negative (NEGATIVE) Urine Urobilinogen 0.2 (0.2-1.0) E.U./dL Ur Leukocyte Esterase Large H (NEGATIVE) Urine RBC 5-10 H /HPF Urine WBC 50-75 H /HPF Ur Epithelial Cells Few /LPF Urine Bacteria Many H (NONE TO FEW) /HPF 01/28/19 01/28/19 01/29/19 Range/Units 14:40 20:40 07:10 WBC 6.5 (4.0-10.2) K/uL RBC 4.44 (3.77-5.09) M/uL Hgb 14.3 (11.7-15.5) g/dL Hct 44.9 (34.0-46.0) % MCV 101.1 H (84.0-98.0) fL MCH 32.2 (28.2-33.3) pg MCHC 31.8 (31.7-36.0) g/dL RDW 16.0 H (11.2-14.1) % Plt Count 157 (150-350) K/uL Neut % (Auto) 63.5 (45.0-80.0) % Lymph % (Auto) 24.7 (10.0-50.0) % [place] % (Auto) 9.8 (2.0-14.0) % Eos % (Auto) 0.3 (0.0-5.0) % Baso % (Auto) 1.7 (0.0-2.0) % Neut # (Auto) 4.15 (1.40-7.00) K/uL Lymph # (Auto) 1.61 (0.50-3.50) K/uL [place] # (Auto) 0.64 (0.00-1.00) K/uL Eos # (Auto) 0.02 (0.00-0.50) K/uL Baso # (Auto) 0.11 (0.00-0.20) K/uL PT (9.5-12.0) SEC INR APTT (21.0-31.3) SEC D-Dimer, Quantitative (0-400) ng/mL Sodium (136-145) mmol/L Potassium (3.5-5.1) mmol/L Chloride (98-107) mmol/L Carbon Dioxide (21.0-32.0) mmol/L BUN (7-18) mg/dL Creatinine (0.51-1.17) mg/dL Est Cr Clr Drug Dosing Estimated GFR (MDRD) mL/min Glucose (74-106) mg/dL Hemoglobin A1c (4.3-5.7) % Lactic Acid (0.4-2.0) mmol/L Uric Acid (2.6-7.2) mg/dL Calcium (8.5-10.1) mg/dL Phosphorus 4.5 (2.6-4.7) mg/dL Magnesium (1.8-2.4) mg/dL Iron (50-175) ug/dL TIBC (250-450) ug/dL % Saturation Ferritin (8-388) ng/mL Total Bilirubin (0.2-1.0) mg/dL AST (15-37) U/L ALT (12-78) U/L Alkaline Phosphatase (46-116) IU/L Creatine Kinase 29 31 (26-308) U/L Creatine Kinase Index 2.1 1.9 (0.0-2.5) % CK-MB (CK-2) 0.60 0.60 (0.00-3.60) ng/mL Troponin I 0.032 0.038 (0.000-0.056) ng/mL NT-Pro-B Natriuret Pep (0-125) pg/mL Total Protein (6.4-8.2) g/dL Albumin (3.4-5.0) g/dL Triglycerides (30-150) mg/dL Cholesterol (100-200) mg/dL LDL Cholesterol, Calc (0-100) mg/dL HDL Cholesterol (40-60) mg/dL Vitamin B12 (193-986) pg/mL Folate (8.6-58.9) ng/mL TSH, Ultra Sensitive (0.358-3.740) mIU/mL Specimen Type Urine Color Urine Appearance Urine pH (5.0-9.0) Ur Specific [place] (1.005-1.030) Urine Protein (NEGATIVE) mg/dL Urine Glucose (UA) (NEGATIVE) mg/dL Urine Ketones (NEGATIVE) mg/dL Urine Occult Blood (NEGATIVE) Urine Nitrite (NEGATIVE) Urine Bilirubin (NEGATIVE) Urine Urobilinogen (0.2-1.0) E.U./dL Ur Leukocyte Esterase (NEGATIVE) Urine RBC /HPF Urine WBC /HPF Ur Epithelial Cells /LPF Urine Bacteria (NONE TO FEW) /HPF 01/29/19 01/29/19 01/29/19 Range/Units 07:10 07:10 07:10 WBC (4.0-10.2) K/uL RBC (3.77-5.09) M/uL Hgb (11.7-15.5) g/dL Hct (34.0-46.0) % MCV (84.0-98.0) fL MCH (28.2-33.3) pg MCHC (31.7-36.0) g/dL RDW (11.2-14.1) % Plt Count (150-350) K/uL Neut % (Auto) (45.0-80.0) % Lymph % (Auto) (10.0-50.0) % [place] % (Auto) (2.0-14.0) % Eos % (Auto) (0.0-5.0) % Baso % (Auto) (0.0-2.0) % Neut # (Auto) (1.40-7.00) K/uL Lymph # (Auto) (0.50-3.50) K/uL [place] # (Auto) (0.00-1.00) K/uL Eos # (Auto) (0.00-0.50) K/uL Baso # (Auto) (0.00-0.20) K/uL PT (9.5-12.0) SEC INR APTT (21.0-31.3) SEC D-Dimer, Quantitative 1880 H (0-400) ng/mL Sodium 148 H (136-145) mmol/L Potassium 3.8 (3.5-5.1) mmol/L Chloride 106 (98-107) mmol/L Carbon Dioxide 27.3 (21.0-32.0) mmol/L BUN 73 H (7-18) mg/dL Creatinine 3.18 H* (0.51-1.17) mg/dL Est Cr Clr Drug Dosing TNP Estimated GFR (MDRD) 15 mL/min Glucose 181 H (74-106) mg/dL Hemoglobin A1c 7.1 H (4.3-5.7) % Lactic Acid (0.4-2.0) mmol/L Uric Acid (2.6-7.2) mg/dL Calcium 11.5 H (8.5-10.1) mg/dL Phosphorus (2.6-4.7) mg/dL Magnesium (1.8-2.4) mg/dL Iron (50-175) ug/dL TIBC (250-450) ug/dL % Saturation Ferritin (8-388) ng/mL Total Bilirubin 0.5 (0.2-1.0) mg/dL AST 10 L (15-37) U/L ALT 12 (12-78) U/L Alkaline Phosphatase 67 (46-116) IU/L Creatine Kinase 44 (26-308) U/L Creatine Kinase Index 2.0 (0.0-2.5) % CK-MB (CK-2) 0.90 (0.00-3.60) ng/mL Troponin I 0.035 (0.000-0.056) ng/mL NT-Pro-B Natriuret Pep 1071 H (0-125) pg/mL Total Protein 8.7 H (6.4-8.2) g/dL Albumin 3.6 (3.4-5.0) g/dL Triglycerides 400 H (30-150) mg/dL Cholesterol 255 H (100-200) mg/dL LDL Cholesterol, Calc 134 H (0-100) mg/dL HDL Cholesterol 41 (40-60) mg/dL Vitamin B12 1388 H (193-986) pg/mL Folate 25.1 (8.6-58.9) ng/mL TSH, Ultra Sensitive (0.358-3.740) mIU/mL Specimen Type Urine Color Urine Appearance Urine pH (5.0-9.0) Ur Specific [place] (1.005-1.030) Urine Protein (NEGATIVE) mg/dL Urine Glucose (UA) (NEGATIVE) mg/dL Urine Ketones (NEGATIVE) mg/dL Urine Occult Blood (NEGATIVE) Urine Nitrite (NEGATIVE) Urine Bilirubin (NEGATIVE) Urine Urobilinogen (0.2-1.0) E.U./dL Ur Leukocyte Esterase (NEGATIVE) Urine RBC /HPF Urine WBC /HPF Ur Epithelial Cells /LPF Urine Bacteria (NONE TO FEW) /HPF 01/29/19 Range/Units 07:10 WBC (4.0-10.2) K/uL RBC (3.77-5.09) M/uL Hgb (11.7-15.5) g/dL Hct (34.0-46.0) % MCV (84.0-98.0) fL MCH (28.2-33.3) pg MCHC (31.7-36.0) g/dL RDW (11.2-14.1) % Plt Count (150-350) K/uL Neut % (Auto) (45.0-80.0) % Lymph % (Auto) (10.0-50.0) % [place] % (Auto) (2.0-14.0) % Eos % (Auto) (0.0-5.0) % Baso % (Auto) (0.0-2.0) % Neut # (Auto) (1.40-7.00) K/uL Lymph # (Auto) (0.50-3.50) K/uL [place] # (Auto) (0.00-1.00) K/uL Eos # (Auto) (0.00-0.50) K/uL Baso # (Auto) (0.00-0.20) K/uL PT (9.5-12.0) SEC INR APTT (21.0-31.3) SEC D-Dimer, Quantitative (0-400) ng/mL Sodium (136-145) mmol/L Potassium (3.5-5.1) mmol/L Chloride (98-107) mmol/L Carbon Dioxide (21.0-32.0) mmol/L BUN (7-18) mg/dL Creatinine (0.51-1.17) mg/dL Est Cr Clr Drug Dosing Estimated GFR (MDRD) mL/min Glucose (74-106) mg/dL Hemoglobin A1c (4.3-5.7) % Lactic Acid (0.4-2.0) mmol/L Uric Acid (2.6-7.2) mg/dL Calcium (8.5-10.1) mg/dL Phosphorus (2.6-4.7) mg/dL Magnesium (1.8-2.4) mg/dL Iron 63 (50-175) ug/dL TIBC 330 (250-450) ug/dL % Saturation 19.08282 Ferritin 426 H (8-388) ng/mL Total Bilirubin (0.2-1.0) mg/dL AST (15-37) U/L ALT (12-78) U/L Alkaline Phosphatase (46-116) IU/L Creatine Kinase (26-308) U/L Creatine Kinase Index (0.0-2.5) % CK-MB (CK-2) (0.00-3.60) ng/mL Troponin I (0.000-0.056) ng/mL NT-Pro-B Natriuret Pep (0-125) pg/mL Total Protein (6.4-8.2) g/dL Albumin (3.4-5.0) g/dL Triglycerides (30-150) mg/dL Cholesterol (100-200) mg/dL LDL Cholesterol, Calc (0-100) mg/dL HDL Cholesterol (40-60) mg/dL Vitamin B12 (193-986) pg/mL Folate (8.6-58.9) ng/mL TSH, Ultra Sensitive (0.358-3.740) mIU/mL Specimen Type Urine Color Urine Appearance Urine pH (5.0-9.0) Ur Specific [place] (1.005-1.030) Urine Protein (NEGATIVE) mg/dL Urine Glucose (UA) (NEGATIVE) mg/dL Urine Ketones (NEGATIVE) mg/dL Urine Occult Blood (NEGATIVE) Urine Nitrite (NEGATIVE) Urine Bilirubin (NEGATIVE) Urine Urobilinogen (0.2-1.0) E.U./dL Ur Leukocyte Esterase (NEGATIVE) Urine RBC /HPF Urine WBC /HPF Ur Epithelial Cells /LPF Urine Bacteria (NONE TO FEW) /HPF [place] Results Last 24 Hours: Urine culture and sensitivity still pending Med Orders - Current: Current Medications Acetaminophen (Tylenol) 650 mg PO Q4HR PRN PRN Reason: Pain Allopurinol (Zyloprim) 100 mg PO DAILY [facility] Last Admin: 01/29/19 08:38 Dose: 100 mg Aspirin (Halfprin) 81 mg PO DAILY [facility] Last Admin: 01/29/19 08:37 Dose: 81 mg Atorvastatin Calcium (Lipitor) 40 mg PO BEDTIME [facility] Last Admin: 01/28/19 19:51 Dose: Not Given Enoxaparin Sodium (Lovenox) 80 mg SUBCUT Q24H [facility] Furosemide (Lasix) 40 mg IVPUSH Q8H [facility] Last Admin: 01/29/19 04:04 Dose: 40 mg Levothyroxine Sodium (Synthroid) 100 mcg PO ACBREAKFAST [facility] Last Admin: 01/29/19 08:37 Dose: 100 mcg Levothyroxine Sodium (Levothyroxine) 25 mcg PO ACBREAKFAST [facility] Last Admin: 01/29/19 08:37 Dose: 25 mcg Potassium Chloride (Klor-Con M20) 20 meq PO TID [facility] Last Admin: 01/29/19 08:37 Dose: 20 meq Sodium Chloride (Saline Flush) 10 ml FLUSH ASDIRECTED PRN PRN Reason: Keep Vein Open Last Admin: 01/29/19 04:04 Dose: 10 ml Sodium Chloride (Saline Flush) 10 ml FLUSH Q12HR PRN PRN Reason: Keep Vein Open Last Admin: 01/28/19 19:52 Dose: 10 ml Discontinued Medications Enoxaparin Sodium (Lovenox) 30 mg SUBCUT Q24H [facility] Last Admin: 01/28/19 13:00 Dose: 30 mg Enoxaparin Sodium (Lovenox) 60 mg SUBCUT ONETIME ONE Stop: 01/28/19 15:26 Last Admin: 01/28/19 16:12 Dose: 60 mg Famotidine (Pepcid) 40 mg IVPUSH ONETIME ONE Stop: 01/28/19 09:47 Last Admin: 01/28/19 10:03 Dose: 40 mg Potassium Chloride 10 meq/ (Premix) 50 mls @ 50 mls/hr IV Q1H [facility] Stop: 01/28/19 23:00 Last Admin: 01/28/19 22:53 Dose: 50 mls/hr Vancomycin HCl 1 gm/ Dextrose/ (Water) 250 mls @ 165 mls/hr IV ONETIME ONE Stop: 01/28/19 23:26 Last Admin: 01/28/19 22:44 Dose: Not Given Vancomycin HCl 1 gm/ Sodium (Chloride) 250 mls @ 165 mls/hr IV ONETIME ONE Stop: 01/28/19 23:26 Last Admin: 01/28/19 22:53 Dose: 165 mls/hr Magnesium Hydroxide (Milk Of Magnesia) 30 ml PO DAILY PRN PRN Reason: Constipation Non-Formulary Medication (Allopurinol [Zyloprim]) 300 mg PO DAILY [facility] - Exam Quality Assessment: DVT Prophylaxis (Lovenox). No: Supplemental Oxygen, Urine Catheter, Skin Breakdown, Restraints General: Cooperative, No Acute Distress, Lethargic HEENT: Pupils Equal, Pupils Reactive, EOMI, Mucous Membr. Moist/[place] Neck: Supple, Trachea Midline, No JVD, No Thyromegaly. No: Lymphadenopathy Lungs: Normal Respiratory Effort, Rales (Mild bilateral basilar). No: Rhonchi, Rub, Wheezing Cardiovascular: Regular Rate (With previous occasional bradycardia), Irregular Rhythm (Occasional extrasystoles), Bradycardia (As above), Murmurs (Mild 1/6 CUONG of the aortic valve). No: Gallops, Rubs GI/Abdominal Exam: Normal Bowel Sounds, Soft, Non-Tender, No Organomegaly, No Distention, No Abnormal Bruit, No Mass, Pelvis Stable, Other (Obese). No: Guarding (Female) Exam: Deferred Back Exam: Normal Inspection, Full Range of Motion, Other (Mild kyphosis). No: CVA Tenderness (L), CVA Tenderness (R), Muscle Spasm Extremities: Normal Inspection, Normal Range of Motion, Non-Tender, No Pedal Edema, Normal Capillary Refill. No: Deanne's Sign Peripheral Pulses: 2+: Radial (L), Radial (R), Dorsalis Pedis (L), Dorsalis Pedis (R) Skin: Ecchymosis (Occasional/ Lovenox sites) Neurological: No New Focal Deficit, Other (Awakes with tactile stimuli and verbal commands and alert at that time. Stable borderline right hemiparesis) Psy/Mental Status: No: Alert, Agitated, Hallucinations, Withdrawal Symptoms EKG INTERPRETATION EKG Date: 01/29/19 Time: 09:36 Rhythm: NSR Rate (Beats/Min): 96 [place]: Normal (Neutral cardiac axis) P-Wave: Present QRS: Normal (0.08 seconds) ST-T: Other (Unspecific ST changes with ST depressions in leads 2, 3, aVF, and V3 through the V6) QT: Normal NH/PQ Interval: 0.19 seconds with poor R-wave progression in the anterior leads Comparison: Change From Previous EKG (No PVCs with mild progression of nonspecific changes from lead V3) EKG Interpretation Comments: 1. Probable inferolateral cardiac ischemia 2. PVCs resolved - Problem List & Annotations (1) CHF (congestive heart failure) SNOMED Code(s): 84865653 Code(s): I50.9 - HEART FAILURE, UNSPECIFIED Status: Acute Priority: High Current Visit: Yes Onset Date: 07/31/18 Qualifiers: Heart failure type: combined systolic and diastolic Heart failure chronicity: acute on chronic Qualified Code(s): I50.43 - Acute on chronic combined systolic (congestive) and diastolic (congestive) heart failure Annotation/Comment:: Moderate progressive BNP elevation with secondary mild change of troponin I, which is normal, likely secondary to patient's worsening renal function. EKG shows some possible stable inferolateral cardiac ischemia as above with otherwise normal cardiac enzymes with no apparent recent anginal complaints. Chest pain protocol was not initiated in the emergency room. Known cardiac disease as per emergency room note. D-dimer still elevated, however improved with therapeutic subcutaneous Lovenox therapy for her newly diagnosed proximal right common femoral DVT as per simple provider note. Note chronic d- dimer elevation with negative workup in the past. No clinical evidence of PE. Mild CHF based on chest x-ray on admission with repeat chest x-ray tomorrow. Long-term prognosis is extremely guarded secondary to her probable heart disease , end-stage renal disease, etc.. CODE STATUS should be reconsidered with family tomorrow with consideration of hospital transfer, if her condition persists and/ or her renal function worsens. Cardiology consultation depending on her clinical course. Note current FULL CODE STATUS despite patient's history of organic brain syndrome, etc. Note telephone consultation with the patient's daughter, Bria, on 01/28 at 10:40 a.m., who did agree to hospitalization in this facility. Her son/POA, Natalia, could not be reached by telephone prior to admission. (2) Encephalopathy SNOMED Code(s): 12949547 Code(s): G93.40 - ENCEPHALOPATHY, UNSPECIFIED Status: Acute Priority: High Current Visit: Yes Onset Date: ~01/27/19 Annotation/Comment:: Refractory to therapy with similar previous episode on 11/21/18 secondary to her renal disease per [place] physicians. Prognosis poor. (3) UTI (urinary tract infection) SNOMED Code(s): 31573392 Code(s): N39.0 - URINARY TRACT INFECTION, SITE NOT SPECIFIED Status: Acute Priority: High Current Visit: Yes Onset Date: 01/28/19 Qualifiers: Urinary tract infection type: acute cystitis Hematuria presence: without hematuria Qualified Code(s): N30.00 - Acute cystitis without hematuria Annotation/Comment:: History of recurrent UTIs. One dose of IV vancomycin given on 01/28 with change to IV Rocephin therapy secondary to her worsening renal function. Cath UA specimen for culture and sensitivity still pending. No fever or leukocytosis. (4) Chronic kidney disease SNOMED Code(s): 739690312 Code(s): N18.9 - CHRONIC KIDNEY DISEASE, UNSPECIFIED Status: Acute Priority: [facility] Current Visit: Yes Qualifiers: Chronic kidney disease stage: stage 5, not on chronic dialysis Qualified Code(s): N18.5 - Chronic kidney disease, stage 5 Annotation/Comment:: As above. The patient was about ready to restart dialysis. Initiated IV Lasix therapy with caution, however this will be decreased at this time secondary to worsening renal function. IV potassium chloride was started on 01/28 secondary to poor oral intake. PTH still pending with normal phosphate level on 01/29, and known history of secondary hyperparathyroidism. Nephrology consultation, hospital transfer, etc. depending on her clinical course. (5) D-dimer, elevated SNOMED Code(s): 123813942 Code(s): R79.89 - OTHER SPECIFIED ABNORMAL FINDINGS OF BLOOD CHEMISTRY Status: Acute Priority: High Current Visit: Yes Onset Date: 07/31/18 Annotation/Comment:: As above (6) Organic brain syndrome SNOMED Code(s): 683902570 Code(s): F09 - UNSP MENTAL DISORDER DUE TO KNOWN PHYSIOLOGICAL CONDITION Status: Chronic Priority: [facility] Current Visit: Yes Annotation/Comment:: Persistent refractory lethargy secondary to probable returned acute encephalopathy. No direct evidence of acute CVA with stroke code not called and multiple previous negative workups including MRA, MRI, etc. at [facility] after transfer to that facility on 11/21/18 as per emergency room note. Note normal vitamin B-12, folic acid level, TIBC panel, etc. on 01/29. (7) Diabetes mellitus SNOMED Code(s): 09880352 Code(s): E11.9 - TYPE 2 DIABETES MELLITUS WITHOUT COMPLICATIONS Status: Chronic Priority: Medium Current Visit: Yes Qualifiers: Diabetes mellitus type: type 2 Diabetes mellitus [employer] insulin use: with jail use Diabetes mellitus complication status: with kidney complications Diabetes mellitus complication detail: with chronic kidney disease Chronic kidney disease stage: stage 5, not on chronic dialysis Qualified Code(s): E11.22 - Type 2 diabetes mellitus with diabetic chronic kidney disease; N18.5 - Chronic kidney disease, stage 5; Z79.4 - penitentiary ( current) use of insulin Annotation/Comment:: Stable by history. Note diabetic nephropathy. Glycosylated hemoglobin mildly elevated at 7.1% on 01/29. Secondary to poor oral intake. Change patient to low-dose sliding scale. Significant mixed hyperlipidemia including hypertriglyceridemia, etc. on 01/29 (8) Hypothyroidism (acquired) SNOMED Code(s): 813361607 Code(s): E03.9 - HYPOTHYROIDISM, UNSPECIFIED Status: Chronic Priority: Medium Current Visit: Yes Annotation/Comment:: Under therapy with normal TSH today. Note elevated calcium level with history of secondary hyperparathyroidism from her renal disease. PTH, phosphate level, etc. to be conducted during this hospitalization. IV Lasix for now as above. (9) PVCs (premature ventricular contractions) SNOMED Code(s): 81568941 Code(s): I49.3 - VENTRICULAR PREMATURE DEPOLARIZATION Status: Acute Priority: Medium Current Visit: Yes Onset Date: 11/21/18 Annotation/ Comment:: Nonsymptomatic. Mild sinus tachycardia on admission, which is improved at this time. Observe for now. (10) Schizophrenia SNOMED Code(s): 19761297 Code(s): F20.9 - SCHIZOPHRENIA, UNSPECIFIED Status: Chronic Priority: Medium Current Visit: Yes Qualifiers: Schizophrenia type: unspecified Qualified Code(s): F20.9 - Schizophrenia, unspecified Annotation/Comment:: Note history of schizophrenia with anxiety depression disorder and current organic brain syndrome. Patient has not been taking her medications for the last couple of days prior to admission as above. Continue medication changes during this hospitalization (11) Osteoarthritis SNOMED Code(s): 506508168 Code(s): M19.90 - UNSPECIFIED OSTEOARTHRITIS, UNSPECIFIED SITE Status: Chronic Priority: Medium Current Visit: Yes Qualifiers: Osteoarthritis location: multiple joints Osteoarthritis type: primary Qualified Code(s): M15.0 - Primary generalized (osteo)arthritis Annotation/Comment:: Stable by history (12) Hypoalbuminemia SNOMED Code(s): 717714081 Code(s): E88.09 - OTH DISORDERS OF PLASMA-PROTEIN METABOLISM, NEC Status: Acute Priority: Medium Current Visit: Yes Onset Date: 11/21/18 Annotation/Comment:: Previous decreased albumin with normal level today, however elevated protein level. Observe for now. Consider electroimmunophoresis. (13) Hypercalcemia SNOMED Code(s): 45961898 Code(s): E83.52 - HYPERCALCEMIA Status: Acute Priority: High Current Visit: Yes Onset Date: 07/31/18 Annotation/Comment:: Note renal insufficiency and secondary hyperparathyroidism. Continue to observe for now. - Problem List Review Problem List Initiated/Reviewed/Updated: Yes - My Orders Last 24 Hours: My Active Orders 01/28/19 09:46 Cardiac Monitoring [RC] Q2HR EKG Documentation Completion [RC] ASDIRECTED Peripheral IV Care [RC] . DIRECTED Chest 1V Frontal [CR] Stat Sodium Chloride 0.9% [Saline Flush] 10 ml FLUSH ASDIRECTED PRN Peripheral IV Insertion Adult [OM.PC] Stat Resuscitation Status Stat 01/28/19 11:14 Acetaminophen [Tylenol] 650 mg PO Q4HR PRN Sodium Chloride 0.9% [Saline Flush] 10 ml FLUSH Q12HR PRN 01/28/19 11:15 Antiembolic Devices [RC] .Routine Antiembolic Devices [RC] 08,20 Communication Order [RC] ROUTINE Communication, Vaccine [RC] PER UNIT ROUTINE Height and Weight [RC] DAILY Intake and Output Strict [RC] 06,18 Oxygen Therapy [RC] PRN Pulse Oximetry [RC] ASDIRECTED Up With Assistance [RC] ASDIRECTED VTE/DVT Education [RC] PER UNIT ROUTINE Vaccines to be Administered [RC] PER UNIT ROUTINE H PYLORI STOOL ANTIGEN [MREF] ONETIME OCCULT BLOOD DIAGNOSTIC [OP] Stat Antiembolic Hose [OM.PC] Routine CHF Questionnaire [COMM] Routine DVT/VTE Prophylaxis Reflex [OM.PC] Routine GM Immunization Reflex [OM.PC] Click To Edit 01/28/19 11:22 Communication Order [RC] Q4HR 01/28/19 11:25 CULTURE URINE [RM] Routine 01/28/19 11:43 Venous Doppler Lwr Ext Bi [US] Urgent 01/28/19 12:00 Furosemide [Lasix] 40 mg IVPUSH Q8H Potassium Chloride [Klor-Con M20] 20 meq PO TID 01/28/19 13:10 MRSA BY PCR [MREF] Routine 01/28/19 14:40 PTH, INTACT [REF] Routine 01/28/19 16:51 Vital Signs [RC] Q4HR 01/28/19 20:00 atorvaSTATin [Lipitor] 40 mg PO BEDTIME 01/28/19 Dinner Nothing per Oral Now Diet [DIET] 01/29/19 05:11 EKG Documentation Completion [RC] ASDIRECTED 01/29/19 07:30 Levothyroxine 25 mcg PO ACBREAKFAST Levothyroxine [Synthroid] 100 mcg PO ACBREAKFAST 01/29/19 08:00 Allopurinol [Zyloprim] 100 mg PO DAILY Aspirin [Halfprin] 81 mg PO DAILY 01/29/19 15:00 Enoxaparin [Lovenox] 80 mg SUBCUT Q24H - Assessment Assessment:: As above - Plan Plan:: As above. Extensive precautions were given to the patient, who is in agreement with the treatment plan. Possible hospital transfer tomorrow as above.
[2019-01-29] MEDS ORDERED: Acetaminophen 650 MG Supp RECTAL PRN (10:56)
[2019-01-29] MEDS: Insulin Lispro 100 Units/ML 3 ML Vial SUBCUT SCH ×2 (12:30→22:15)
[2019-01-29] MEDS: cefTRIAXone 1 GM in Sodium Chloride 0.9% 100 ML IV SCH (12:30)
[2019-01-29] MEDS ORDERED: Enoxaparin 80 MG/0.8 ML Syringe SUBCUT SCH (15:00)
[2019-01-30 04:38] VITALS: PULSE 109
[2019-01-30 07:58] LABS: CHLORIDE,CL 105 mmol/L (98-107); SODIUM,NA 150 mmol/L (136-145)
--- NOTE | 2019-01-30 09:16 | PCM.DCSUM1 ---
Discharge Summary - Hospital Course HPI Initial Comments: See emergency room note/admission H&P Brief History: See emergency room note/admission H&P Diagnosis: Stroke: No Modified [place] Scale: Sev.Disablility Bedridden,Incont.&Require Constant Nrsg.Care/Attention Modified [place] Scale Score: 5 - Discharge Data Discharge Date: 01/30/19 Discharge Disposition: DC/Tfer to Acute Hospital 02 Condition: Good - Discharge Diagnosis/Problem(s) (1) CHF (congestive heart failure) SNOMED Code(s): 67558544 ICD Code: I50.9 - HEART FAILURE, UNSPECIFIED Status: Acute Priority: High Current Visit: Yes Onset Date: 07/31/18 Problem Details: Continued Moderate progressive BNP elevation with secondary mild change of troponin I, which is normal, likely secondary to patient's worsening renal function. Serial EKGs show some possible stable inferolateral cardiac ischemia as above with otherwise normal cardiac enzymes with no apparent recent anginal complaints. Chest pain protocol was not initiated in the emergency room. Known cardiac disease as per emergency room note. D-dimer still elevated, however improved with therapeutic subcutaneous Lovenox therapy for her newly diagnosed proximal right common femoral DVT as per simple provider note. Note chronic d-dimer elevation with negative workup in the past. No clinical evidence of PE. Mild CHF based on chest x-ray on admission with repeat chest x-ray on 01/30. Long-term prognosis is extremely guarded/poor secondary to her probable heart disease, end -stage renal disease, etc.. Initial telephone consultation today at 08:45 hours with the patient's son/CHRISTY Alvarado, and additional telephone consultations at 08: 45 hours and 09:00 hours with the patient's daughter/Bria HARRISON, concerning their wishes for further treatment of their mother. Patient was initially a full code and after extensive counseling and discussion today the patient's CODE STATUS has been changed to modified comfort care with transfer to [facility] and dialysis if deemed appropriate per accepting providers, however no other aggressive intervention including CPR, intubation, electrocardioversion, etc.. Cardiology consultation depending on her clinical course. Note current patient' s history of organic brain syndrome, etc. Subsequent telephone at 09:00 hours with [facility] with consultation at 09:[address] Hummel, hospitalist, who does accept the patient for direct admission, with no other further treatment recommendations given. He is aware of patient's hospital course and family's wishes as above. Ambulance transfer with commercial art instructor accompaniment. Qualifiers: Heart failure type: combined systolic and diastolic Heart failure chronicity: acute on chronic Qualified Code(s): I50.43 - Acute on chronic combined systolic (congestive) and diastolic (congestive) heart failure (2) Encephalopathy SNOMED Code(s): 78917702 ICD Code: G93.40 - ENCEPHALOPATHY, UNSPECIFIED Status: Acute Priority: High Current Visit: Yes Onset Date: ~01/27/19 Problem Details: Refractory to therapy with similar previous episode on 11/21/18 secondary to her renal disease per [facility] physicians. Prognosis poor as above. Despite patient's current neurological status no evidence of recent CVA as per emergency room note. Note negative Babinski's, etc. today and throughout this hospitalization. (3) UTI (urinary tract infection) SNOMED Code(s): 57535483 ICD Code: N39.0 - URINARY TRACT INFECTION, SITE NOT SPECIFIED Status: Acute Priority: High Current Visit: Yes Onset Date: 01/28/19 Problem Details: History of recurrent UTIs. One dose of IV vancomycin given on 01/28 with change to IV Rocephin therapy secondary to her worsening renal function on 01/29. Cath UA specimen for culture and sensitivity indicates suspected Escherichia coli infection. No fever or leukocytosis during this hospitalization. Qualifiers: Urinary tract infection type: acute cystitis Hematuria presence: without hematuria Qualified Code(s): N30.00 - Acute cystitis without hematuria (4) Chronic kidney disease SNOMED Code(s): 054691337 ICD Code: N18.9 - CHRONIC KIDNEY DISEASE, UNSPECIFIED Status: Acute Priority: High Current Visit: Yes Problem Details: As above. The patient has been considered for possible initiation of dialysis with AV shunt in place. Initiated IV Lasix therapy with caution on admission, however this was decreased on 01/29 secondary to worsening renal function. IV potassium chloride was started on 01/28 secondary to poor oral intake with no IV supplementation on and mild hypokalemia at time of patient's transfer. PTH results are still pending with normal phosphate level on 01/29, and known history of secondary hyperparathyroidism, hypercalcemia, etc. Nephrology consultation subsequent to hospital transfer will likely be ordered by accepting providers. Qualifiers: Chronic kidney disease stage: stage 5, not on chronic dialysis Qualified Code(s): N18.5 - Chronic kidney disease, stage 5 (5) D-dimer, elevated SNOMED Code(s): 526081912 ICD Code: R79.89 - OTHER SPECIFIED ABNORMAL FINDINGS OF BLOOD CHEMISTRY Status: Acute Priority: High Current Visit: Yes Onset Date: 07/31/18 Problem Details: As above. Note subcutaneous Lovenox was dosed as per recommendations from pharmacy with additional consideration of her renal failure. (6) Organic brain syndrome SNOMED Code(s): 319544673 ICD Code: F09 - UNSP MENTAL DISORDER DUE TO KNOWN PHYSIOLOGICAL CONDITION Status: Chronic Priority: High Current Visit: Yes Problem Details: Persistent refractory lethargy secondary to probable returned acute encephalopathy as above. No direct evidence of acute CVA with stroke code not called and multiple previous negative workups including MRA, MRI, etc. at [facility] after transfer to that facility on 11/21/18 as per emergency room note. Note normal vitamin B-12, folic acid level, TIBC panel, etc. on 01/29. (7) Diabetes mellitus SNOMED Code(s): 99126627 ICD Code: E11.9 - TYPE 2 DIABETES MELLITUS WITHOUT COMPLICATIONS Status: Chronic Priority: Medium Current Visit: Yes Problem Details: Stable by history. Note diabetic nephropathy. Glycosylated hemoglobin mildly elevated at 7.1% on 01/29. Secondary to poor oral intake. Change patient to low-dose sliding scale. Significant mixed hyperlipidemia including hypertriglyceridemia, etc. on 01/29 Qualifiers: Diabetes mellitus type: type 2 Diabetes mellitus terminal carman insulin use: with mcfp use Diabetes mellitus complication status: with kidney complications Diabetes mellitus complication detail: with chronic kidney disease Chronic kidney disease stage: stage 5, not on chronic dialysis Qualified Code(s): E11.22 - Type 2 diabetes mellitus with diabetic chronic kidney disease; N18.5 - Chronic kidney disease, stage 5; Z79.4 - buttermaker continuous churn ( current) use of insulin (8) Hypothyroidism (acquired) SNOMED Code(s): 573641650 ICD Code: E03.9 - HYPOTHYROIDISM, UNSPECIFIED Status: Chronic Priority: Medium Current Visit: Yes Problem Details: Despite poor oral intake and the patient not taking any of her medications we did continue to try to give the patient's Synthroid supplementation during this hospitalization with mixed results. Normal TSH during this hospitalization. Note elevated calcium level with history of secondary hyperparathyroidism from her renal disease. PTH, phosphate level, etc. conducted during this hospitalization as above. Continue IV Lasix for now as above. (9) PVCs (premature ventricular contractions) SNOMED Code(s): 19249416 ICD Code: I49.3 - VENTRICULAR PREMATURE DEPOLARIZATION Status: Acute Priority: Medium Current Visit: Yes Onset Date: 11/21/18 Problem Details: Nonsymptomatic. Mild sinus tachycardia on admission, which is improved at this time. Observe for now. (10) Schizophrenia SNOMED Code(s): 44936418 ICD Code: F20.9 - SCHIZOPHRENIA, UNSPECIFIED Status: Chronic Priority: Medium Current Visit: Yes Problem Details: Note history of schizophrenia with anxiety depression disorder and current organic brain syndrome. Patient has not been taking her medications for the last couple of days prior to admission and throughout this hospitalization as above. Qualifiers: Schizophrenia type: unspecified Qualified Code(s): F20.9 - Schizophrenia, unspecified (11) Osteoarthritis SNOMED Code(s): 585780825 ICD Code: M19.90 - UNSPECIFIED OSTEOARTHRITIS, UNSPECIFIED SITE Status: Chronic Priority: Medium Current Visit: Yes Problem Details: Stable by history Qualifiers: Osteoarthritis location: multiple joints Osteoarthritis type: primary Qualified Code(s): M15.0 - Primary generalized (osteo)arthritis (12) Hypoalbuminemia SNOMED Code(s): 298061647 ICD Code: E88.09 - OTH DISORDERS OF PLASMA-PROTEIN METABOLISM, NEC Status: Acute Priority: Medium Current Visit: Yes Onset Date: 11/21/18 Problem Details: Previous decreased albumin with normal level today, however elevated protein level. Observe for now. Consider electroimmunophoresis. (13) Hypercalcemia SNOMED Code(s): 06967279 ICD Code: E83.52 - HYPERCALCEMIA Status: Acute Priority: High Current Visit: Yes Onset Date: 07/31/18 Problem Details: Note renal insufficiency and secondary hyperparathyroidism. Continue to observe for now. - Patient Summary/Data Operative Procedure(s) Performed: None Complications: None Consults: None with exception of pharmacy as above Labs Pending at D/C: 1. PTH 2. Final report of the venous Doppler studies of the lower extremities 3. Final chest x-ray report from 01/30/19 Recommended Follow-up Testing/Procedures: As above and as per instructions from accepting providers Planned Operative Procedure(s) after DC: None Hospital Course: The patient was admitted to inpatient/acute care on telemetry after initial emergency room evaluation by me in this facility. Patient failed to respond to aggressive treatment measures as above with subsequent consultation with the patient's family members and transfer to [facility] as above. Prognosis is extremely poor and patient likely in end-stage renal failure, etc. - Patient Instructions Diet: NPO Activity: Bedrest Driving: Do Not Drive Showering/Bathing: No Showering Notify Provider of: Fever, Increased Pain, Nausea and/or Vomiting - Discharge Plan *PRESCRIPTION DRUG MONITORING PROGRAM REVIEWED*: Not Applicable *COPY OF PRESCRIPTION DRUG MONITORING REPORT IN PATIENT DEISI: Not Applicable Home Medications: Home Meds ARIPiprazole [Abilify] 15 mg PO 199907/13/15 [History] Aspirin [Halfprin] 81 mg PO DAILY 07/13/15 [History] Donepezil HCl [Aricept] 10 mg PO 07/13/15 [History] Metoprolol Succinate [Toprol XL] 0.5 tab PO DAILY 07/13/15 [History] atorvaSTATin [Lipitor] 40 mg PO 199907/13/15 [History] traMADol HCl [Ultram] 50 mg PO BEDTIME 07/13/15 [History] Allopurinol [Zyloprim] 300 mg PO DAILY 04/17/18 [History] Bumetanide [Bumex] 2 mg PO DAILY 04/17/18 [History] Divalproex Sodium [Depakote Sprinkle] 125 mg PO BIDMEALS 04/17/18 [History] Ferrous Fumarate/Vitamin C [Vitron-C] 2 tab PO DAILY@1000 04/17/18 [History] Gabapentin [Neurontin] 400 mg PO DAILY 04/17/18 [History] Magnesium Hydroxide [Milk of Magnesia] 30 ml PO DAILY PRN 04/17/18 [History] Nystatin 1 each TOP BID PRN 04/17/18 [History] Levothyroxine 125 mcg PO ACBREAKFAST 11/21/18 [History] Acetaminophen [Non-Aspirin] 650 mg PO Q4HR PRN 01/28/19 [History] Potassium Chloride 20 meq PO TID 01/28/19 [History] metOLazone [Metolazone] 1 tab PO MO 01/28/19 [History] Oxygen Therapy Mode: Room Air Forms: ED Department Discharge, Interfacility Transfer EMTALA Referrals: Sheets-Pauline Crews MD [Primary Care Provider] - - Discharge Summary/Plan Comment DC Time >30 min.: Yes (Coordination of care ) - General Info Date of Service: 01/30/19 Admission Dx/Problem (Free Text: 1. Acute encephalopathy 2. Renal insufficiency Subjective Update: Patient continues to be very lethargic and not taking any oral medications, including a couple of days prior to admission as per emergency room note. She is a poor historian secondary to her lethargy, however no apparent current discomfort or pain Functional Status: Reports: Pain Controlled, Urinating. Denies: Tolerating Diet (Not taking food or medicine with only limited fluid intake), Ambulating, New Symptoms, Incentive Spirometry (Patient unable to perform) Numeric/FACES Score: 0 - Review of Systems General: Reports: Weakness, Fatigue, Malaise, Appetite (Poor with limited by mouth intake as above ). Denies: Fever, Chills HEENT: Reports: No Symptoms Pulmonary: Reports: No Symptoms Cardiovascular: Reports: No Symptoms. Denies: Edema Gastrointestinal: Reports: Decreased Appetite Genitourinary: Reports: No Symptoms Musculoskeletal: Reports: No Symptoms Skin: Reports: Bruising (At Lovenox therapy sites) Neurological: Reports: Confusion, Weakness, Other (Lethargy as above). Denies: Seizure Psychiatric: Reports: Confusion. Denies: Agitation, Cravings, Hallucinations - Patient Data Vitals - Most Recent: Last Vital Signs Temp 36.6 C 01/30/19 04:36 Pulse 109 H 01/30/19 04:36 Resp 18 01/30/19 04:36 BP 120/82 01/30/19 04:36 Pulse Ox 94 L 01/30/19 04:36 Vital Signs - 24 hr 01/29/19 01/29/19 01/30/19 11:42 18:00 00:00 Temperature [ 36.1 C 36.7 C 36.5 C Temporal] Pulse, 92 98 Peripheral [ Left Pulse Oximetry] Respiratory 17 20 18 Rate Blood Pressure 164/77 H 155/91 H 138/88 [Right Upper Arm] O2 Sat by Pulse 96 92 L 93 L Oximetry 01/30/19 04:36 Temperature [ 36.6 C Temporal] Pulse, 109 H Peripheral [ Left Pulse Oximetry] Respiratory 18 Rate Blood Pressure 120/82 [Right Upper Arm] O2 Sat by Pulse 94 L Oximetry Weight - Most Recent: 73.936 kg I&O - Last 24 hours: Intake & Output 01/29/19 01/30/19 01/30/19 22:59 06:59 14:59 Intake Total 100 150 Balance 100 150 Imaging Impressions - Last 24 hrs: 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 Moderate COPD changes. Moderate prominence of the proximal aortic arch. Mild left lower lobe atelectasis versus pleural effusion. No pneumothorax or significant pulmonary infiltrates. Telephone consultation with [facility] [employer] tech. 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 Lovenox dosing obtained from [place] pharmacist, secondary to patient's end stage renal disease. Lab Results - Last 24 hrs: Laboratory Results - last 24 hr 01/29/19 01/29/19 01/30/19 Range/Units 11:16 22:13 06:40 WBC 8.3 (4.0-10.2) K/uL RBC 4.77 (3.77-5.09) M/uL Hgb 15.3 (11.7-15.5) g/dL Hct 47.8 H (34.0-46.0) % MCV 100.2 H (84.0-98.0) fL MCH 32.1 (28.2-33.3) pg MCHC 32.0 (31.7-36.0) g/dL RDW 15.9 H (11.2-14.1) % Plt Count 168 (150-350) K/uL Neut % (Auto) 68.9 (45.0-80.0) % Lymph % (Auto) 22.9 (10.0-50.0) % [place] % (Auto) 7.3 (2.0-14.0) % Eos % (Auto) 0.1 (0.0-5.0) % Baso % (Auto) 0.8 (0.0-2.0) % Neut # (Auto) 5.72 (1.40-7.00) K/uL Lymph # (Auto) 1.90 (0.50-3.50) K/uL [place] # (Auto) 0.61 (0.00-1.00) K/uL Eos # (Auto) 0.01 (0.00-0.50) K/uL Baso # (Auto) 0.07 (0.00-0.20) K/uL Sodium (136-145) mmol/L Potassium (3.5-5.1) mmol/L Chloride (98-107) mmol/L Carbon Dioxide (21.0-32.0) mmol/L BUN (7-18) mg/dL Creatinine (0.51-1.17) mg/dL Est Cr Clr Drug Dosing Estimated GFR (MDRD) mL/min Glucose (74-106) mg/dL POC Glucose 183 H 195 H (65-110) mg/dl Calcium (8.5-10.1) mg/dL NT-Pro-B Natriuret Pep (0-125) pg/mL 01/30/19 01/30/19 Range/Units 06:40 07:04 WBC (4.0-10.2) K/uL RBC (3.77-5.09) M/uL Hgb (11.7-15.5) g/dL Hct (34.0-46.0) % MCV (84.0-98.0) fL MCH (28.2-33.3) pg MCHC (31.7-36.0) g/dL RDW (11.2-14.1) % Plt Count (150-350) K/uL Neut % (Auto) (45.0-80.0) % Lymph % (Auto) (10.0-50.0) % [place] % (Auto) (2.0-14.0) % Eos % (Auto) (0.0-5.0) % Baso % (Auto) (0.0-2.0) % Neut # (Auto) (1.40-7.00) K/uL Lymph # (Auto) (0.50-3.50) K/uL [place] # (Auto) (0.00-1.00) K/uL Eos # (Auto) (0.00-0.50) K/uL Baso # (Auto) (0.00-0.20) K/uL Sodium 150 H (136-145) mmol/L Potassium 3.3 L (3.5-5.1) mmol/L Chloride 105 (98-107) mmol/L Carbon Dioxide 28.9 (21.0-32.0) mmol/L BUN 84 H (7-18) mg/dL Creatinine 3.43 H* (0.51-1.17) mg/dL Est Cr Clr Drug Dosing TNP Estimated GFR (MDRD) 13 mL/min Glucose 182 H (74-106) mg/dL POC Glucose 176 H (65-110) mg/dl Calcium 11.7 H (8.5-10.1) mg/dL NT-Pro-B Natriuret Pep 1594 H (0-125) pg/mL Laboratory Tests 01/28/19 01/28/19 01/28/19 Range/Units 09:50 09:50 09:50 WBC 10.2 (4.0-10.2) K/uL RBC 4.40 (3.77-5.09) M/uL Hgb 14.3 D (11.7-15.5) g/dL Hct 44.8 (34.0-46.0) % MCV 101.8 H (84.0-98.0) fL MCH 32.5 (28.2-33.3) pg MCHC 31.9 (31.7-36.0) g/dL RDW 16.3 H (11.2-14.1) % Plt Count 181 (150-350) K/uL Neut % (Auto) 69.6 (45.0-80.0) % Lymph % (Auto) 21.1 (10.0-50.0) % [place] % (Auto) 7.7 (2.0-14.0) % Eos % (Auto) 0.5 (0.0-5.0) % Baso % (Auto) 1.1 (0.0-2.0) % Neut # (Auto) 7.08 H (1.40-7.00) K/uL Lymph # (Auto) 2.14 (0.50-3.50) K/uL [place] # (Auto) 0.78 (0.00-1.00) K/uL Eos # (Auto) 0.05 (0.00-0.50) K/uL Baso # (Auto) 0.11 (0.00-0.20) K/uL PT 10.7 (9.5-12.0) SEC INR 1.0 APTT 26.2 (21.0-31.3) SEC D-Dimer, Quantitative 3330 H (0-400) ng/mL Sodium (136-145) mmol/L Potassium (3.5-5.1) mmol/L Chloride (98-107) mmol/L Carbon Dioxide (21.0-32.0) mmol/L BUN (7-18) mg/dL Creatinine (0.51-1.17) mg/dL Est Cr Clr Drug Dosing Estimated GFR (MDRD) mL/min Glucose (74-106) mg/dL POC Glucose (65-110) mg/dl Hemoglobin A1c (4.3-5.7) % Lactic Acid (0.4-2.0) mmol/L Uric Acid (2.6-7.2) mg/dL Calcium (8.5-10.1) mg/dL Phosphorus (2.6-4.7) mg/dL Magnesium (1.8-2.4) mg/dL Iron (50-175) ug/dL TIBC (250-450) ug/dL % Saturation Ferritin (8-388) ng/mL Total Bilirubin (0.2-1.0) mg/dL AST (15-37) U/L ALT (12-78) U/L Alkaline Phosphatase (46-116) IU/L Creatine Kinase (26-308) U/L Creatine Kinase Index (0.0-2.5) % CK-MB (CK-2) (0.00-3.60) ng/mL Troponin I (0.000-0.056) ng/mL NT-Pro-B Natriuret Pep (0-125) pg/mL Total Protein (6.4-8.2) g/dL Albumin (3.4-5.0) g/dL Triglycerides (30-150) mg/dL Cholesterol (100-200) mg/dL LDL Cholesterol, Calc (0-100) mg/dL HDL Cholesterol (40-60) mg/dL Vitamin B12 (193-986) pg/mL Folate (8.6-58.9) ng/mL TSH, Ultra Sensitive (0.358-3.740) mIU/mL Specimen Type Urine Color Urine Appearance Urine pH (5.0-9.0) Ur Specific [place] (1.005-1.030) Urine Protein (NEGATIVE) mg/dL Urine Glucose (UA) (NEGATIVE) mg/dL Urine Ketones (NEGATIVE) mg/dL Urine Occult Blood (NEGATIVE) Urine Nitrite (NEGATIVE) Urine Bilirubin (NEGATIVE) Urine Urobilinogen (0.2-1.0) E.U./dL Ur Leukocyte Esterase (NEGATIVE) Urine RBC /HPF Urine WBC /HPF Ur Epithelial Cells /LPF Urine Bacteria (NONE TO FEW) /HPF 01/28/19 01/28/19 01/28/19 Range/Units 09:50 09:50 11:25 WBC (4.0-10.2) K/uL RBC (3.77-5.09) M/uL Hgb (11.7-15.5) g/dL Hct (34.0-46.0) % MCV (84.0-98.0) fL MCH (28.2-33.3) pg MCHC (31.7-36.0) g/dL RDW (11.2-14.1) % Plt Count (150-350) K/uL Neut % (Auto) (45.0-80.0) % Lymph % (Auto) (10.0-50.0) % [place] % (Auto) (2.0-14.0) % Eos % (Auto) (0.0-5.0) % Baso % (Auto) (0.0-2.0) % Neut # (Auto) (1.40-7.00) K/uL Lymph # (Auto) (0.50-3.50) K/uL [place] # (Auto) (0.00-1.00) K/uL Eos # (Auto) (0.00-0.50) K/uL Baso # (Auto) (0.00-0.20) K/uL PT (9.5-12.0) SEC INR APTT (21.0-31.3) SEC D-Dimer, Quantitative (0-400) ng/mL Sodium 146 H (136-145) mmol/L Potassium 4.3 (3.5-5.1) mmol/L Chloride 105 (98-107) mmol/L Carbon Dioxide 29.4 (21.0-32.0) mmol/L BUN 69 H D (7-18) mg/dL Creatinine 2.96 H (0.51-1.17) mg/dL Est Cr Clr Drug Dosing TNP Estimated GFR (MDRD) 16 mL/min Glucose 181 H (74-106) mg/dL POC Glucose (65-110) mg/dl Hemoglobin A1c (4.3-5.7) % Lactic Acid 1.8 (0.4-2.0) mmol/L Uric Acid 7.1 (2.6-7.2) mg/dL Calcium 11.7 H D (8.5-10.1) mg/dL Phosphorus (2.6-4.7) mg/dL Magnesium 2.3 (1.8-2.4) mg/dL Iron (50-175) ug/dL TIBC (250-450) ug/dL % Saturation Ferritin (8-388) ng/mL Total Bilirubin 0.4 (0.2-1.0) mg/dL AST 17 (15-37) U/L ALT 13 (12-78) U/L Alkaline Phosphatase 65 (46-116) IU/L Creatine Kinase 44 (26-308) U/L Creatine Kinase Index 1.1 (0.0-2.5) % CK-MB (CK-2) 0.50 (0.00-3.60) ng/mL Troponin I 0.035 (0.000-0.056) ng/mL NT-Pro-B Natriuret Pep 712 H (0-125) pg/mL Total Protein 9.0 H (6.4-8.2) g/dL Albumin 3.7 (3.4-5.0) g/dL Triglycerides (30-150) mg/dL Cholesterol (100-200) mg/dL LDL Cholesterol, Calc (0-100) mg/dL HDL Cholesterol (40-60) mg/dL Vitamin B12 (193-986) pg/mL Folate (8.6-58.9) ng/mL TSH, Ultra Sensitive 1.729 (0.358-3.740) mIU/mL Specimen Type [place] Urine Color Yellow Urine Appearance Cloudy Urine pH 6.5 (5.0-9.0) Ur Specific [place] 1.015 (1.005-1.030) Urine Protein 30 H (NEGATIVE) mg/dL Urine Glucose (UA) Negative (NEGATIVE) mg/dL Urine Ketones Trace H (NEGATIVE) mg/dL Urine Occult Blood Trace-intact H (NEGATIVE) Urine Nitrite Negative (NEGATIVE) Urine Bilirubin Negative (NEGATIVE) Urine Urobilinogen 0.2 (0.2-1.0) E.U./dL Ur Leukocyte Esterase Large H (NEGATIVE) Urine RBC 5-10 H /HPF Urine WBC 50-75 H /HPF Ur Epithelial Cells Few /LPF Urine Bacteria Many H (NONE TO FEW) /HPF 01/28/19 01/28/19 01/29/19 Range/Units 14:40 20:40 07:10 WBC 6.5 (4.0-10.2) K/uL RBC 4.44 (3.77-5.09) M/uL Hgb 14.3 (11.7-15.5) g/dL Hct 44.9 (34.0-46.0) % MCV 101.1 H (84.0-98.0) fL MCH 32.2 (28.2-33.3) pg MCHC 31.8 (31.7-36.0) g/dL RDW 16.0 H (11.2-14.1) % Plt Count 157 (150-350) K/uL Neut % (Auto) 63.5 (45.0-80.0) % Lymph % (Auto) 24.7 (10.0-50.0) % [place] % (Auto) 9.8 (2.0-14.0) % Eos % (Auto) 0.3 (0.0-5.0) % Baso % (Auto) 1.7 (0.0-2.0) % Neut # (Auto) 4.15 (1.40-7.00) K/uL Lymph # (Auto) 1.61 (0.50-3.50) K/uL [place] # (Auto) 0.64 (0.00-1.00) K/uL Eos # (Auto) 0.02 (0.00-0.50) K/uL Baso # (Auto) 0.11 (0.00-0.20) K/uL PT (9.5-12.0) SEC INR APTT (21.0-31.3) SEC D-Dimer, Quantitative (0-400) ng/mL Sodium (136-145) mmol/L Potassium (3.5-5.1) mmol/L Chloride (98-107) mmol/L Carbon Dioxide (21.0-32.0) mmol/L BUN (7-18) mg/dL Creatinine (0.51-1.17) mg/dL Est Cr Clr Drug Dosing Estimated GFR (MDRD) mL/min Glucose (74-106) mg/dL POC Glucose (65-110) mg/dl Hemoglobin A1c (4.3-5.7) % Lactic Acid (0.4-2.0) mmol/L Uric Acid (2.6-7.2) mg/dL Calcium (8.5-10.1) mg/dL Phosphorus 4.5 (2.6-4.7) mg/dL Magnesium (1.8-2.4) mg/dL Iron (50-175) ug/dL TIBC (250-450) ug/dL % Saturation Ferritin (8-388) ng/mL Total Bilirubin (0.2-1.0) mg/dL AST (15-37) U/L ALT (12-78) U/L Alkaline Phosphatase (46-116) IU/L Creatine Kinase 29 31 (26-308) U/L Creatine Kinase Index 2.1 1.9 (0.0-2.5) % CK-MB (CK-2) 0.60 0.60 (0.00-3.60) ng/mL Troponin I 0.032 0.038 (0.000-0.056) ng/mL NT-Pro-B Natriuret Pep (0-125) pg/mL Total Protein (6.4-8.2) g/dL Albumin (3.4-5.0) g/dL Triglycerides (30-150) mg/dL Cholesterol (100-200) mg/dL LDL Cholesterol, Calc (0-100) mg/dL HDL Cholesterol (40-60) mg/dL Vitamin B12 (193-986) pg/mL Folate (8.6-58.9) ng/mL TSH, Ultra Sensitive (0.358-3.740) mIU/mL Specimen Type Urine Color Urine Appearance Urine pH (5.0-9.0) Ur Specific [place] (1.005-1.030) Urine Protein (NEGATIVE) mg/dL Urine Glucose (UA) (NEGATIVE) mg/dL Urine Ketones (NEGATIVE) mg/dL Urine Occult Blood (NEGATIVE) Urine Nitrite (NEGATIVE) Urine Bilirubin (NEGATIVE) Urine Urobilinogen (0.2-1.0) E.U./dL Ur Leukocyte Esterase (NEGATIVE) Urine RBC /HPF Urine WBC /HPF Ur Epithelial Cells /LPF Urine Bacteria (NONE TO FEW) /HPF 01/29/19 01/29/19 01/29/19 Range/Units 07:10 07:10 07:10 WBC (4.0-10.2) K/uL RBC (3.77-5.09) M/uL Hgb (11.7-15.5) g/dL Hct (34.0-46.0) % MCV (84.0-98.0) fL MCH (28.2-33.3) pg MCHC (31.7-36.0) g/dL RDW (11.2-14.1) % Plt Count (150-350) K/uL Neut % (Auto) (45.0-80.0) % Lymph % (Auto) (10.0-50.0) % [place] % (Auto) (2.0-14.0) % Eos % (Auto) (0.0-5.0) % Baso % (Auto) (0.0-2.0) % Neut # (Auto) (1.40-7.00) K/uL Lymph # (Auto) (0.50-3.50) K/uL [place] # (Auto) (0.00-1.00) K/uL Eos # (Auto) (0.00-0.50) K/uL Baso # (Auto) (0.00-0.20) K/uL PT (9.5-12.0) SEC INR APTT (21.0-31.3) SEC D-Dimer, Quantitative 1880 H (0-400) ng/mL Sodium 148 H (136-145) mmol/L Potassium 3.8 (3.5-5.1) mmol/L Chloride 106 (98-107) mmol/L Carbon Dioxide 27.3 (21.0-32.0) mmol/L BUN 73 H (7-18) mg/dL Creatinine 3.18 H* (0.51-1.17) mg/dL Est Cr Clr Drug Dosing TNP Estimated GFR (MDRD) 15 mL/min Glucose 181 H (74-106) mg/dL POC Glucose (65-110) mg/dl Hemoglobin A1c 7.1 H (4.3-5.7) % Lactic Acid (0.4-2.0) mmol/L Uric Acid (2.6-7.2) mg/dL Calcium 11.5 H (8.5-10.1) mg/dL Phosphorus (2.6-4.7) mg/dL Magnesium (1.8-2.4) mg/dL Iron (50-175) ug/dL TIBC (250-450) ug/dL % Saturation Ferritin (8-388) ng/mL Total Bilirubin 0.5 (0.2-1.0) mg/dL AST 10 L (15-37) U/L ALT 12 (12-78) U/L Alkaline Phosphatase 67 (46-116) IU/L Creatine Kinase 44 (26-308) U/L Creatine Kinase Index 2.0 (0.0-2.5) % CK-MB (CK-2) 0.90 (0.00-3.60) ng/mL Troponin I 0.035 (0.000-0.056) ng/mL NT-Pro-B Natriuret Pep 1071 H (0-125) pg/mL Total Protein 8.7 H (6.4-8.2) g/dL Albumin 3.6 (3.4-5.0) g/dL Triglycerides 400 H (30-150) mg/dL Cholesterol 255 H (100-200) mg/dL LDL Cholesterol, Calc 134 H (0-100) mg/dL HDL Cholesterol 41 (40-60) mg/dL Vitamin B12 1388 H (193-986) pg/mL Folate 25.1 (8.6-58.9) ng/mL TSH, Ultra Sensitive (0.358-3.740) mIU/mL Specimen Type Urine Color Urine Appearance Urine pH (5.0-9.0) Ur Specific [place] (1.005-1.030) Urine Protein (NEGATIVE) mg/dL Urine Glucose (UA) (NEGATIVE) mg/dL Urine Ketones (NEGATIVE) mg/dL Urine Occult Blood (NEGATIVE) Urine Nitrite (NEGATIVE) Urine Bilirubin (NEGATIVE) Urine Urobilinogen (0.2-1.0) E.U./dL Ur Leukocyte Esterase (NEGATIVE) Urine RBC /HPF Urine WBC /HPF Ur Epithelial Cells /LPF Urine Bacteria (NONE TO FEW) /HPF 01/29/19 01/29/19 01/29/19 Range/Units 07:10 11:16 22:13 WBC (4.0-10.2) K/uL RBC (3.77-5.09) M/uL Hgb (11.7-15.5) g/dL Hct (34.0-46.0) % MCV (84.0-98.0) fL MCH (28.2-33.3) pg MCHC (31.7-36.0) g/dL RDW (11.2-14.1) % Plt Count (150-350) K/uL Neut % (Auto) (45.0-80.0) % Lymph % (Auto) (10.0-50.0) % [place] % (Auto) (2.0-14.0) % Eos % (Auto) (0.0-5.0) % Baso % (Auto) (0.0-2.0) % Neut # (Auto) (1.40-7.00) K/uL Lymph # (Auto) (0.50-3.50) K/uL [place] # (Auto) (0.00-1.00) K/uL Eos # (Auto) (0.00-0.50) K/uL Baso # (Auto) (0.00-0.20) K/uL PT (9.5-12.0) SEC INR APTT (21.0-31.3) SEC D-Dimer, Quantitative (0-400) ng/mL Sodium (136-145) mmol/L Potassium (3.5-5.1) mmol/L Chloride (98-107) mmol/L Carbon Dioxide (21.0-32.0) mmol/L BUN (7-18) mg/dL Creatinine (0.51-1.17) mg/dL Est Cr Clr Drug Dosing Estimated GFR (MDRD) mL/min Glucose (74-106) mg/dL POC Glucose 183 H 195 H (65-110) mg/dl Hemoglobin A1c (4.3-5.7) % Lactic Acid (0.4-2.0) mmol/L Uric Acid (2.6-7.2) mg/dL Calcium (8.5-10.1) mg/dL Phosphorus (2.6-4.7) mg/dL Magnesium (1.8-2.4) mg/dL Iron 63 (50-175) ug/dL TIBC 330 (250-450) ug/dL % Saturation [id number] Ferritin 426 H (8-388) ng/mL Total Bilirubin (0.2-1.0) mg/dL AST (15-37) U/L ALT (12-78) U/L Alkaline Phosphatase (46-116) IU/L Creatine Kinase (26-308) U/L Creatine Kinase Index (0.0-2.5) % CK-MB (CK-2) (0.00-3.60) ng/mL Troponin I (0.000-0.056) ng/mL NT-Pro-B Natriuret Pep (0-125) pg/mL Total Protein (6.4-8.2) g/dL Albumin (3.4-5.0) g/dL Triglycerides (30-150) mg/dL Cholesterol (100-200) mg/dL LDL Cholesterol, Calc (0-100) mg/dL HDL Cholesterol (40-60) mg/dL Vitamin B12 (193-986) pg/mL Folate (8.6-58.9) ng/mL TSH, Ultra Sensitive (0.358-3.740) mIU/mL Specimen Type Urine Color Urine Appearance Urine pH (5.0-9.0) Ur Specific [place] (1.005-1.030) Urine Protein (NEGATIVE) mg/dL Urine Glucose (UA) (NEGATIVE) mg/dL Urine Ketones (NEGATIVE) mg/dL Urine Occult Blood (NEGATIVE) Urine Nitrite (NEGATIVE) Urine Bilirubin (NEGATIVE) Urine Urobilinogen (0.2-1.0) E.U./dL Ur Leukocyte Esterase (NEGATIVE) Urine RBC /HPF Urine WBC /HPF Ur Epithelial Cells /LPF Urine Bacteria (NONE TO FEW) /HPF 01/30/19 01/30/19 01/30/19 Range/Units 06:40 06:40 07:04 WBC 8.3 (4.0-10.2) K/uL RBC 4.77 (3.77-5.09) M/uL Hgb 15.3 (11.7-15.5) g/dL Hct 47.8 H (34.0-46.0) % MCV 100.2 H (84.0-98.0) fL MCH 32.1 (28.2-33.3) pg MCHC 32.0 (31.7-36.0) g/dL RDW 15.9 H (11.2-14.1) % Plt Count 168 (150-350) K/uL Neut % (Auto) 68.9 (45.0-80.0) % Lymph % (Auto) 22.9 (10.0-50.0) % [place] % (Auto) 7.3 (2.0-14.0) % Eos % (Auto) 0.1 (0.0-5.0) % Baso % (Auto) 0.8 (0.0-2.0) % Neut # (Auto) 5.72 (1.40-7.00) K/uL Lymph # (Auto) 1.90 (0.50-3.50) K/uL [place] # (Auto) 0.61 (0.00-1.00) K/uL Eos # (Auto) 0.01 (0.00-0.50) K/uL Baso # (Auto) 0.07 (0.00-0.20) K/uL PT (9.5-12.0) SEC INR APTT (21.0-31.3) SEC D-Dimer, Quantitative (0-400) ng/mL Sodium 150 H (136-145) mmol/L Potassium 3.3 L (3.5-5.1) mmol/L Chloride 105 (98-107) mmol/L Carbon Dioxide 28.9 (21.0-32.0) mmol/L BUN 84 H (7-18) mg/dL Creatinine 3.43 H* (0.51-1.17) mg/dL Est Cr Clr Drug Dosing TNP Estimated GFR (MDRD) 13 mL/min Glucose 182 H (74-106) mg/dL POC Glucose 176 H (65-110) mg/dl Hemoglobin A1c (4.3-5.7) % Lactic Acid (0.4-2.0) mmol/L Uric Acid (2.6-7.2) mg/dL Calcium 11.7 H (8.5-10.1) mg/dL Phosphorus (2.6-4.7) mg/dL Magnesium (1.8-2.4) mg/dL Iron (50-175) ug/dL TIBC (250-450) ug/dL % Saturation Ferritin (8-388) ng/mL Total Bilirubin (0.2-1.0) mg/dL AST (15-37) U/L ALT (12-78) U/L Alkaline Phosphatase (46-116) IU/L Creatine Kinase (26-308) U/L Creatine Kinase Index (0.0-2.5) % CK-MB (CK-2) (0.00-3.60) ng/mL Troponin I (0.000-0.056) ng/mL NT-Pro-B Natriuret Pep 1594 H (0-125) pg/mL Total Protein (6.4-8.2) g/dL Albumin (3.4-5.0) g/dL Triglycerides (30-150) mg/dL Cholesterol (100-200) mg/dL LDL Cholesterol, Calc (0-100) mg/dL HDL Cholesterol (40-60) mg/dL Vitamin B12 (193-986) pg/mL Folate (8.6-58.9) ng/mL TSH, Ultra Sensitive (0.358-3.740) mIU/mL Specimen Type Urine Color Urine Appearance Urine pH (5.0-9.0) Ur Specific [place] (1.005-1.030) Urine Protein (NEGATIVE) mg/dL Urine Glucose (UA) (NEGATIVE) mg/dL Urine Ketones (NEGATIVE) mg/dL Urine Occult Blood (NEGATIVE) Urine Nitrite (NEGATIVE) Urine Bilirubin (NEGATIVE) Urine Urobilinogen (0.2-1.0) E.U./dL Ur Leukocyte Esterase (NEGATIVE) Urine RBC /HPF Urine WBC /HPF Ur Epithelial Cells /LPF Urine Bacteria (NONE TO FEW) /HPF ROBEL Results - Last 24 hrs: Microbiology 01/28/19 11:25 Urine Culture - Final Urine, Quick Cath (In-Out) Escherichia Coli. Med Orders - Current: Current Medications Acetaminophen (Tylenol) 650 mg RECTAL Q4H PRN PRN Reason: Pain/Fever Enoxaparin Sodium (Lovenox) 80 mg SUBCUT Q24H [facility] Last Admin: 01/29/19 15:21 Dose: 80 mg Furosemide (Lasix) 40 mg IVPUSH Q12H [facility] Last Admin: 01/29/19 20:17 Dose: 40 mg Ceftriaxone Sodium 1 gm/ (Sodium Chloride) 100 mls @ 200 mls/hr IV Q24H [facility] Last Admin: 01/29/19 12:30 Dose: 200 mls/hr Insulin Human Lispro (Humalog) 0 unit SUBCUT Q12H [facility]; Protocol Last Admin: 01/29/19 22:15 Dose: Not Given Levothyroxine Sodium (Synthroid) 100 mcg PO ACBREAKFAST [facility] Last Admin: 01/29/19 08:37 Dose: 100 mcg Levothyroxine Sodium (Levothyroxine) 25 mcg PO ACBREAKFAST [facility] Last Admin: 01/29/19 08:37 Dose: 25 mcg Sodium Chloride (Saline Flush) 10 ml FLUSH ASDIRECTED PRN PRN Reason: Keep Vein Open Last Admin: 01/29/19 12:31 Dose: 10 ml Sodium Chloride (Saline Flush) 10 ml FLUSH Q12HR PRN PRN Reason: Keep Vein Open Last Admin: 01/29/19 20:18 Dose: 10 ml Discontinued Medications Acetaminophen (Tylenol) 650 mg PO Q4HR PRN PRN Reason: Pain Allopurinol (Zyloprim) 100 mg PO DAILY [facility] Last Admin: 01/29/19 08:38 Dose: 100 mg Aspirin (Halfprin) 81 mg PO DAILY [facility] Last Admin: 01/29/19 08:37 Dose: 81 mg Atorvastatin Calcium (Lipitor) 40 mg PO BEDTIME [facility] Last Admin: 01/28/19 19:51 Dose: Not Given Enoxaparin Sodium (Lovenox) 30 mg SUBCUT Q24H [facility] Last Admin: 01/28/19 13:00 Dose: 30 mg Enoxaparin Sodium (Lovenox) 60 mg SUBCUT ONETIME ONE Stop: 01/28/19 15:26 Last Admin: 01/28/19 16:12 Dose: 60 mg Famotidine (Pepcid) 40 mg IVPUSH ONETIME ONE Stop: 01/28/19 09:47 Last Admin: 01/28/19 10:03 Dose: 40 mg Furosemide (Lasix) 40 mg IVPUSH Q8H [facility] Last Admin: 01/29/19 04:04 Dose: 40 mg Potassium Chloride 10 meq/ (Premix) 50 mls @ 50 mls/hr IV Q1H [facility] Stop: 01/28/19 23:00 Last Admin: 01/28/19 22:53 Dose: 50 mls/hr Vancomycin HCl 1 gm/ Dextrose/ (Water) 250 mls @ 165 mls/hr IV ONETIME ONE Stop: 01/28/19 23:26 Last Admin: 01/28/19 22:44 Dose: Not Given Vancomycin HCl 1 gm/ Sodium (Chloride) 250 mls @ 165 mls/hr IV ONETIME ONE Stop: 01/28/19 23:26 Last Admin: 01/28/19 22:53 Dose: 165 mls/hr Magnesium Hydroxide (Milk Of Magnesia) 30 ml PO DAILY PRN PRN Reason: Constipation Non-Formulary Medication (Allopurinol [Zyloprim]) 300 mg PO DAILY [facility] Potassium Chloride (Klor-Con M20) 20 meq PO TID [facility] Last Admin: 01/29/19 08:37 Dose: 20 meq - Exam Quality Assessment: Reports: DVT Prophylaxis (Lovenox). Denies: Supplemental Oxygen, Central Line/PICC, Urine Catheter, Skin Breakdown General: Reports: No Acute Distress, Sedated, Lethargic HEENT: Reports: Pupils Equal, Pupils Reactive, EOMI, Mucous Membr. Moist/[place] Neck: Reports: Supple, No JVD, No Thyromegaly. Denies: Lymphadenopathy Lungs: Reports: Rales (Mild bilateral basilar) Cardiovascular: Reports: Regular Rate, Regular Rhythm, Murmurs (Stable mild 1/6 CUONG of the aortic valve). Denies: No Murmurs, Gallops, Rubs GI/Abdominal Exam: Normal Bowel Sounds, Soft, Non-Tender, No Organomegaly, No Distention, No Abnormal Bruit, No Mass, Pelvis Stable, Other (Obese). No: Guarding (Female) Exam: Deferred Rectal (Female) Exam: Deferred Back Exam: Reports: Full Range of Motion, Other (Kyphosismild). Denies: CVA Tenderness (L), CVA Tenderness (R), Muscle Spasm Extremities: Normal Inspection, Normal Range of Motion, Non-Tender, No Pedal Edema, Normal Capillary Refill. No: Deanne's Sign Skin: Reports: Ecchymosis (Mild at Lovenox sites) Neurological: Reports: No New Focal Deficit, Other (Negative Babinski's with stable persistent lethargy) Psy/Mental Status: Reports: Other (Lethargy as above). Denies: Agitated, Hallucinations, Withdrawal Symptoms
[2019-01-30] MEDS: Furosemide 40 MG/4 ML VIAL IVPUSH SCH (09:22)
[2019-01-30] MEDS: Sodium Chloride 0.9% 10 ML Syringe FLUSH PRN (09:23)
[2019-01-30] MEDS: Levothyroxine 25 MCG Tab PO SCH ×2 (09:24→09:44)
[2019-01-30] MEDS: Levothyroxine 100 MCG Tab PO SCH ×2 (09:25→09:46)
[2019-01-30] MEDS: cefTRIAXone 1 GM in Sodium Chloride 0.9% 100 ML IV SCH (11:50)
[2019-01-30] MEDS: Insulin Lispro 100 Units/ML 3 ML Vial SUBCUT SCH (12:02)
[2019-01-30 12:43] VITALS: BP 141/85
== END 2019-01-30 13:00 | DRG 291 ==
LOC: LL.ED 09:43 → LL.MS 10:44
PROVIDERS: ADMIT Family Medicine; ATTEND Family Medicine
DX: I13.2 Hypertensive heart and chronic kidney disease with heart failure and with stage 5 chronic kidney disease, or end stage renal disease (principal); I50.43 Acute on chronic combined systolic (congestive) and diastolic (congestive) heart failure; N18.6 End stage renal disease; N25.81 Secondary hyperparathyroidism of renal origin; G93.40 Encephalopathy, unspecified; N30.00 Acute cystitis without hematuria; I42.9 Cardiomyopathy, unspecified; Z51.5 Encounter for palliative care; N18.5 Chronic kidney disease, stage 5; F09 Unspecified mental disorder due to known physiological condition; E03.9 Hypothyroidism, unspecified; E11.51 Type 2 diabetes mellitus with diabetic peripheral angiopathy without gangrene; E11.22 Type 2 diabetes mellitus with diabetic chronic kidney disease; F20.9 Schizophrenia, unspecified; M19.91 Primary osteoarthritis, unspecified site; R79.89 Other specified abnormal findings of blood chemistry; I49.3 Ventricular premature depolarization; M15.0 Primary generalized (osteo)arthritis; E88.09 Other disorders of plasma-protein metabolism, not elsewhere classified; Z87.891 Personal history of nicotine dependence; F25.0 Schizoaffective disorder, bipolar type; Z88.0 Allergy status to penicillin; E66.9 Obesity, unspecified; E83.52 Hypercalcemia; M81.0 Age-related osteoporosis without current pathological fracture; Z79.82 Long term (current) use of aspirin; Z79.890 Hormone replacement therapy; Z79.899 Other long term (current) drug therapy; I25.10 Atherosclerotic heart disease of native coronary artery without angina pectoris; E78.00 Pure hypercholesterolemia, unspecified; Z79.4 Long term (current) use of insulin; J44.9 Chronic obstructive pulmonary disease, unspecified; Z90.79 Acquired absence of other genital organ(s); Z99.2 Dependence on renal dialysis; K21.9 Gastro-esophageal reflux disease without esophagitis; G89.29 Other chronic pain; M54.9 Dorsalgia, unspecified; G30.9 Alzheimer's disease, unspecified; Z68.30 Body mass index [BMI] 30.0-30.9, adult; F02.80 Dementia in other diseases classified elsewhere, unspecified severity, without behavioral disturbance, psychotic disturbance, mood disturbance, and anxiety; E11.40 Type 2 diabetes mellitus with diabetic neuropathy, unspecified; Z86.73 Personal history of transient ischemic attack (TIA), and cerebral infarction without residual deficits; F41.9 Anxiety disorder, unspecified
CPT/HCPCS: 36415; 71045; 80053; 82550; 82553; 83605; 83735; 83880; 84443; 84484; 84550; 85025; 85379; 85610; 85730; 93005; 96374; 99285; J3490; 80048; 80061; 81001; 82607; 82728; 82746; 82962; 83036; 83540; 83550; 83970; 84100; 87086; 87088; 87186; 87641; 93970; A4217; A9270-GY; J0696; J1650; J1940; J3370; J3480; J7050